=== PATIENT | female | born 1975 | race Two or more races ===

== ENCOUNTER 2023-05-26 19:32 | Inpatient (IN) | payer MEDICAID, SELFPAY ==
--- NOTE | ~2023-05-26 | CT_ITS ---
EXAMINATION: CT ABDOMEN AND PELVIS WITH CONTRAST CLINICAL INFORMATION: Right lower quadrant abdominal pain COMPARISON: None available. TECHNIQUE: Multidetector volumetric images were obtained from the superior aspect of the liver through the pubic symphysis following administration 85 mL of Omnipaque 350 intravenous contrast. Sagittal and coronal reformatted images were obtained on the technologist's workstation. Oral contrast: No This CT examination was performed using dose optimization techniques as appropriate, variously including the following: *Automated exposure control *Adjustment of mA and/or kV according to patient size (this includes techniques or standardized protocols for targeted exams where dose is matched to indication/reason for exam; i.e. extremities or head) *Use of iterative reconstruction technique DLP: 334 mGy-cm FINDINGS: LUNG BASES: The visualized lung bases are unremarkable. LIVER, GALLBLADDER, AND BILIARY TREE: Exophytic liver contour nodularity is noted at the hepatic dome posteriorly measuring measuring 2.2 cm in transverse dimension and 1.6 cm in AP dimension. (4 image 90, series 7 image 45). The liver is otherwise unremarkable. No intrahepatic biliary ductal dilatation. The common bile duct is mildly prominent in size measuring 0.9 cm. Common bile duct is dilated up to the ampulla. No intraductal radiopaque filling defects are noted. The gallbladder is unremarkable with no evidence of radiopaque gallstones, gallbladder wall thickening, or obvious pericholecystic inflammatory changes. PANCREAS: Unremarkable. SPLEEN: Unremarkable. ADRENAL GLANDS: Unremarkable. KIDNEYS AND URETERS: A 0.8 x 0.5 x 0.6 cm calculus is noted in the right mid ureter approximately 3 cm distal to the ureteropelvic junction. There is proximal moderate hydroureteronephrosis with mild right perinephric stranding. Significant kinking is noted in the proximal right ureter as best seen on the coronal reformatted images (series 7 image 29). Mild enhancement of the wall of the right renal pelvis and right ureter proximal to the level of the calculus is noted. The left kidney is There is somewhat patchy heterogeneous enhancement of the right renal parenchyma. A 1.2 cm low-attenuation is noted in the lateral cortex of the lower pole of the right kidney which does not represent a cyst by CT Hounsfield units criteria. No evidence of left hydroureter nephrosis of left perinephric stranding. No additional radiopaque calculi are noted in the kidneys and ureters. BLADDER: The bladder is largely decompressed and therefore not optimally evaluated. No evidence of radiopaque calculi in the bladder. Even though the latter is collapsed the bladder wall thickening appears to be somewhat greater than expected for a collapsed bladder. There is enhancement of the bladder mucosa. GASTROINTESTINAL TRACT: The stomach is decompressed and therefore not optimally evaluated. No abnormal small bowel dilatation. An appendix is normal. The colon is normal in caliber. No evidence of colonic wall thickening or pericolonic fat stranding. Peritoneal cavity: No evidence of free intraperitoneal air or fluid. ABDOMINAL WALL: No significant hernia is appreciated. LYMPH NODES: No evidence of pathologically enlarged lymph nodes VASCULAR: The aortoiliac vessels are normal in caliber. Incidental note is made of an accessory left renal artery supplying the lower pole. Minimal calcific atherosclerosis of the aortoiliac vessels. PELVIC VISCERA: Unremarkable CT appearance of the uterus, ovaries and adnexa. OSSEOUS STRUCTURES: No acute or suspicious osseous abnormalities. Probable osteopenia. CT/CT abdomen pelvis w IV con IMPRESSION: 1. Normal appendix. 2. A 0.8 x 0.5 x 0.6 cm calculus in the right mid ureter approximately 3 cm distal to the ureteropelvic junction resulting in moderate proximal hydroureteronephrosis. Mild enhancement of the wall of the right renal pelvis and right ureter proximal to the level of the calculus is noted. Mild right perinephric stranding is noted. There is somewhat patchy heterogeneous enhancement of the right renal parenchyma which may represent delayed nephrogram however possibility of renal parenchymal infections process cannot be completely excluded. No evidence of right renal parenchymal abscess or perinephric abscess at this time. 3. A 1.2 cm low-attenuation lesion in the lateral cortex of the lower pole of the right kidney does not represent a cyst by CT Hounsfield units criteria. Recommend focused ultrasound correlation. 4. The bladder is largely decompressed and therefore not optimally evaluated. Even though the bladder is collapsed, the wall thickening appears to be somewhat greater than expected for a collapsed bladder and there is enhancement of the bladder mucosa, recommend clinical correlation and correlation with urinalysis. 5. Exophytic somewhat isodense liver contour nodularity at the hepatic dome posteriorly measuring 2.2 cm in transverse dimension and 1.6 cm in AP dimension. Underlying lesion is difficult to exclude. Recommend further evaluation with dynamic liver MRI. 6. Probable osteopenia. Fleischner guidelines were followed.
--- NOTE | ~2023-05-26 | FL_ITS ---
EXAMINATION: XR FLUOROSCOPY WITH IMAGES CLINICAL INFORMATION: Right ureteral stent placement. COMPARISON: None available. TECHNIQUE: Fluoroscopy Supervised By: Dr. Patrice Hobbs. Fluoroscopy Time: 14.2. Cumulative Dose: 2.52 mGy. Images: 3. FINDINGS: Multiple images demonstrate a cystoscope in place. Contrast is injected. There is an area of mucosal irregularity in the proximal right ureter with associated pelvocaliectasis. Please see Dr. Patrice Hobbs's report for full details. Ureteral stent is not noted on any of the imaging. FL/FL guidance in OR IMPRESSION: Fluoroscopy and spot films provided during cystoscopy and ureteroscopy.
--- NOTE | ~2023-05-26 | IR_ITS ---
EXAMINATION: FLUOROSCOPY NEPHROSTOGRAM CLINICAL INFORMATION: Obstructive uropathy. Status post attempted ureteral stent placement COMPARISON: CT abdomen and pelvis 05/27/2023 TECHNIQUE/FINDINGS: Informed consent was obtained following a discussion of the risks and benefits of the procedure with the patient as well as with the patient's mother via telephone since the patient recently received sedation. Patient was placed prone on the fluoroscopy table. Preliminary ultrasound demonstrates severe right hydronephrosis in concordance with recent cross-sectional imaging. A site on the right flank was selected, marked and sterilely prepped and draped. 1% lidocaine was administered for local anesthesia. A posterior lower pole calyx was accessed with a 21-gauge AccuStick needle under direct ultrasound guidance. The needle was exchanged for a transitional dilator over a 0.018 guidewire. Nephrostogram demonstrates severe hydronephrosis with obstructing stone in the proximal and mid-ureter. A 4 Jamaican glide catheter was negotiated past the stone to the bladder with the assistance of a 0.035 standard Glidewire. Measurements were obtained. Unfortunately, the appropriate length nephroureteral stent was not readily available. As such, we elected to place an 8.5 Jamaican nephrostomy tube. Contrast injection demonstrates satisfactory position of the tube with pigtail formed within the renal pelvis. The external portion of the catheter was secured with suture and the tube was maintained to gravity bag drainage. Patient tolerated the procedure without immediate consultation. FLUOROSCOPY TIME: DOSE AREA PRODUCT: uGy-m2 (microgray-meter squared) IR/IR nephrostomy IMPRESSION: Placement of 8.5 Jamaican right nephrostomy tube Plan: Flush tube with 10 mL saline twice daily. Some amount of blood within the urine output in the diagnostic is expected and should decrease over the next 48-72 hours. If this tube is necessary for a long period of time, routine exchange at 12 weeks is recommended. Follow up with urology
[2023-05-26 19:39] VITALS: BP 120/82; PULSE 100; O2SAT 99
[2023-05-26 21:39] VITALS: BP 118/67; PULSE 101; RESP 20; TEMP 37.6; O2SAT 97; BMI 22.2
[2023-05-26 22:30] LABS: Hematocrit 35.8 % (37.0-47.0); Hemoglobin 11.7 g/dl (12.0-16.0); Mean Corpuscular HGB Conc 32.7 g/dl (31.0-35.0); Mean Corpuscular Hemoglobin 26.2 pg (27.0-33.0); Mean Corpuscular Volume 80.3 fL (80.0-98.0); Mean Platelet Volume 11.9 fL (9.4-12.3); Platelet Count 206 X10*3/uL (160-400); Red Blood Count 4.46 X10*6/uL (4.20-5.50); Red Cell Distribution Width 12.7 % (11.0-16.0); White Blood Count 16.8 X10*3/uL (4.8-10.8)
[2023-05-26 22:32] LABS: Appearance Urine Turbid; Color Urine Yellow; Glucose Urine UA Negative (Negative); Leukocyte Esterase Urine Moderate (2+) (Negative); Nitrite Urine Negative (Negative); PH >= 9.0 (5.0-9.0); UMIC TRIGGER UACC YES; Urine Blood Trace (Negative); Urine Ketones Negative (Negative); Urine Protein 100 (2+) mg/dL (Neg-Trace)
[2023-05-26 22:43] LABS: COVID-19 Test Negative (Negative); IDNOW Serial# 08D9AD1C
[2023-05-26 22:44] LABS: IDNOW Serial# 152EDE1D; Influenza A Negative (Negative); Influenza B2 Negative (Negative)
[2023-05-26 22:47] LABS: Bacteria Urine 4+ (None Seen); UACC Culture Trigger YES; WBC Urine >50 /HPF (0-5)
[2023-05-26 22:52] LABS: Alanine Aminotransferase 21 U/L (0-31); Albumin Level 4.2 g/dL (3.5-5.0); Alkaline Phosphatase 99 U/L (39-117); Anion Gap 14 (12-20); Aspartate Amino Transferase 24 U/L (5-31); Bilirubin Total 0.7 mg/dL (0.0-1.0); Blood Urea Nitrogen 16 mg/dL (9-16); Calcium 9.6 mg/dL (8.4-10.2); Carbon Dioxide 23 mmol/L (22-29); Chloride 104 mmol/L (96-108); Creatinine Clr Calc Pharmacy 55.2; Estimated Glomerular Filt Rate > 60; Glucose Random 143 mg/dL (60-115); HCG Quantitative 9 mIU/mL; Potassium 3.4 mmol/L (3.3-5.1); Sodium 138 mmol/L (135-145); Total Protein 8.8 g/dL (6.5-8.0)
[2023-05-27] VITALS (26 sets, daily range): BP systolic 76–160; BP diastolic 30–66; PULSE 63–107; RESP 13–18; TEMP 36.2–38.6; O2SAT 94–100; BMI 22.2
--- NOTE | 2023-05-27 03:08 | ED_ITS ---
[facility] - General Adult General Chief complaint: General Medical Stated complaint: n/v, weakness since this morning Time Seen by Provider: 05/27/23 02:38 Source: patient Mode of arrival: ambulatory History of Present Illness HPI narrative: 47-year-old female who presents with nausea and vomiting as well as lower abdominal pain and urinary symptoms since this morning. Patient reports that son had influenza 2 weeks ago and last LMP was over 3 years ago. Related Data Allergies Allergy/AdvReac Type Severity Reaction Status Date / Time No Known Allergies Allergy Verified 05/26/23 21:47 Review of Systems 2 Review of Systems: Pertinent positives and negatives as stated in the [facility] Past Medical History Source: nursing notes reviewed Social History Social History Smoked in Last 30 Days: No Use of substances other than those prescribed or required for medical reasons: No Advance Directives: No Advance Directives Information Provided: No Patient : No Physical Exam ED Vital Signs: Vital Signs - 24 hr 05/26/23 21:39 05/27/23 01:56 05/27/23 05:04 Temperature 99.6 F 99.1 F 100.1 F Pulse Rate 101 H 105 H 99 Respiratory Rate 20 17 16 Blood Pressure 118/67 105/58 L 89/48 L Pulse Oximetry 97 98 98 Oxygen Delivery Method Room Air Room Air Room Air 05/27/23 06:38 Temperature 99 F Pulse Rate 66 Respiratory Rate 14 Blood Pressure 110/61 Pulse Oximetry 94 Oxygen Delivery Method Room Air BMI result Body Mass Index 22.2 VITAL SIGNS: Reviewed. GENERAL: Well developed, well nourished, in no acute distress. HEAD: Normocephalic/atraumatic EYES: PERRLA, EOMI EARS: Ext canals without abnormality NOSE: Nares patent bilateral OROPHARYNX: no oral lesions noted, posterior pharynx clear NECK: Supple, no adenopathy LUNGS: Normal breath sounds. No adventitious sounds or accessory muscle use. SpO2<98> CARDIOVASCULAR: Regular rate and rhythm without noted murmurs ABDOMEN: Soft, non-tender, non-distended with bowel sounds. MUSCULOSKELETAL: No tenderness, deformities, or effusions noted on gross inspection. EXTREMITIES: No cyanosis, clubbing or edema. SKIN: Inspection of the skin reveals no rashes NEUROLOGIC: Alert and oriented x 4. Strength and sensation to light touch were grossly intact x 4. Medications Administered Discontinued Medications Generic Name Dose Route Start Last Admin Trade Name Alyssa PRN Reason Stop Dose Admin Sodium Chloride 1,000 mls @ 999 mls/hr 05/27/23 03:15 05/27/23 04:30 Ns IV 05/27/23 04:15 Infused .Q1H1M ASHLEY Infusion Ceftriaxone Sodium 1 gm/ 50 mls @ 100 mls/hr 05/27/23 03:08 05/27/23 04:00 Sodium Chloride IV 05/27/23 03:37 Infused ONCE ONE Infusion Sodium Chloride 1,000 mls @ 999 mls/hr 05/27/23 06:00 05/27/23 06:20 Ns IV 05/27/23 07:00 999 mls/hr .Q1H1M ASHLEY Administration Iohexol 100 ml 05/27/23 06:29 05/27/23 06:30 Iohexol 350 Mg/Ml 100 Ml Infus..Btl IV 05/27/23 06:30 100 ml ONCE ONE Administration Ketorolac Tromethamine 15 mg 05/27/23 03:13 05/27/23 03:26 Ketorolac Tromethamine 30 Mg/Ml Vial IVPUSH 05/27/23 03:14 15 mg ONCE ONE Administration Medical Decision Making Medical Decision Making MDM Narrative: 47-year-old female with history and clinical presentation, DDX: Viral illness, UTI, pyelonephritis, low clinical suspicion for acute appendicitis I reviewed all investigations and hematologic indices significant for leukocytosis and normocytic anemia without thrombocytopenia. Chemistry indices do not demonstrate an OPAL or electrolyte/liver enzyme derangements. Urinalysis demonstrates significant RBCs and bacteria as well as leukocyte esterase increasing the thoughts that this is a pyelonephritis. Patient received IV fluids/antibiotics, antiemetics as well as analgesics. Viral testing is negative for COVID-19/influenza. 0600: I acknowledged that patient's beta hCG is 9, I do think that this is a variability in the patient/lab results, I discussed with the patient at length at bedside and she adamantly denies any sexual relations of any kind and states that there is no possibility that she is . On re-evaluation patient is feeling improved, but states that now she is having significant discomfort in her back. 0653: My preliminary review of the CT scan demonstrates severe right-sided hydronephrosis with a corresponding proximal stone. 0706: I discussed case with Dr. Hobbs who states that he will take a look. I signed out to Dr. 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 Please see the discussion above 05/26/23 22:04 05/26/23 22:04 Labs: Lab Results 05/26/23 05/26/23 Range/Units 22:04 22:16 WBC 16.8 H (4.8-10.8) X10*3/uL RBC 4.46 (4.20-5.50) X10*6/uL Hgb 11.7 L (12.0-16.0) g/dl Hct 35.8 L (37.0-47.0) % MCV 80.3 (80.0-98.0) fL MCH 26.2 L (27.0-33.0) pg MCHC 32.7 (31.0-35.0) g/dl RDW 12.7 (11.0-16.0) % Plt Count 206 (160-400) X10*3/uL MPV 11.9 (9.4-12.3) fL Absolute Nucleated RBC 0.000 (0.0-0.012) X10*3/uL Nucleated RBC % (auto) 0.0 (0.0-0.2) /100WBC Sodium 138 (135-145) mmol/L Potassium 3.4 (3.3-5.1) mmol/L Chloride 104 (96-108) mmol/L Carbon Dioxide 23 (22-29) mmol/L Anion Gap 14 (12-20) BUN 16 (9-16) mg/dL Creatinine 0.85 (0.5-1.4) mg/dL Estim Creat Clear Calc 55.2 Estimated GFR > 60 Random Glucose 143 H (60-115) mg/dL Calcium 9.6 (8.4-10.2) mg/dL Total Bilirubin 0.7 (0.0-1.0) mg/dL AST 24 (5-31) U/L ALT 21 (0-31) U/L Alkaline Phosphatase 99 (39-117) U/L Total Protein 8.8 H (6.5-8.0) g/dL Albumin 4.2 (3.5-5.0) g/dL Beta HCG, Quant 9 mIU/mL Urine Color Yellow Urine Appearance Turbid Urine pH >= 9.0 (5.0-9.0) Ur Specific [place] 1.020 (1.005-1.025) Urine Protein 100 (2+) H (Neg-Trace) mg/dL Urine Glucose (UA) Negative (Negative) mg/dL Urine Ketones Negative (Negative) mg/dL Urine Blood Trace H (Negative) Urine Nitrite Negative (Negative) Ur Leukocyte Esterase Moderate (2+) H (Negative) Urine RBC 6-10 H (0-2) /HPF Urine WBC >50 H (0-5) /HPF Ur Squamous Epith Cells 3-5 (0-2) /HPF Urine Bacteria 4+ (None Seen) Hyaline Casts 3-5 (0-2) /LPF COVID-19 (JUDY) Negative (Negative) COVID-19 Clin Com See Note Influenza Type A (NAYANA) Negative (Negative) Influenza Type B (NAYANA) Negative (Negative) Influenza A & B Note See Note Radiology Impression Discussion of test interpretation with radiology: I have reviewed the radiologist's reading. Radiologist Impression: Please see the discussion above Discharge Plan Discharge Clinical Impression: Hydronephrosis, Ureterolithiasis Patient Disposition: Still a Patient
[2023-05-27] MEDS: Ketorolac Tromethamine 30 MG/ML VIAL 15 MG IVPUSH (03:26)
[2023-05-27] MEDS: 0.9 % Sodium Chloride 1,000 ML 999 ML IV ×2 (03:28→06:20)
[2023-05-27] MEDS: cefTRIAXone sodium 1 GM in 0.9 % Sodium Chloride 50 ML IV ×2 (03:28→17:52)
[2023-05-27] MEDS: iohexoL 350 MG/ML 100 ML INFUS..BTL IV (06:30)
--- NOTE | 2023-05-27 07:30 | PC.NURSE ---
pt is alert and oriented, skin appropriate for ethnicity but warm to touch, respirations even and unlabored, pt denies abd pain at this time, abd pain only when urinating but does report a headache 7/10 and nausea.
[2023-05-27] MEDS: ondansetron HCL 4 MG/2 ML VIAL IVPUSH (07:57)
[2023-05-27] MEDS: Lactated Ringers 1,000 ML 150 ML IVCONT ×2 (07:57→17:27)
[2023-05-27] MEDS: Morphine Sulfate 4 MG/ML CARTRIDGE IVPUSH (07:57)
--- NOTE | 2023-05-27 08:32 | PM.UROCN ---
History of Present Illness Consult details Consult date: 05/27/23 Narrative: CC: Proximal right ureteric stone with obstruction 47-year-old female. Presents with 1 day history of right flank pain, fever, chills. Has had flank pain on and off for past 2-3 weeks Associated with nausea and vomiting No known stone history No family history stones reported WBC 16.8, creatinine 0.85 Has received ceftriaxone single dose Temperature up to 101.4 with pulse 104, BP 118/66 Imaging - CT A 0.8 x 0.5 x 0.6 cm calculus is noted in the right mid ureter approximately 3 cm distal to the ureteropelvic junction. There is proximal moderate hydroureteronephrosis with mild right perinephric stranding. Plan for cystoscopy, right retrograde, stent placement Review of Systems Constitutional: Constitutional: Reports as per HPI and Reports no additional constitutional complaints Cardiovascular: Cardiovascular: Reports as per HPI and Reports no additional cardiovascular complaints Respiratory: Respiratory: Reports as per HPI and Reports no additional respiratory complaints Gastrointestinal: Gastrointestinal: Reports as per HPI and Reports no additional gastrointestinal complaints Genitourinary: Genitourinary: Reports as per HPI Musculoskeletal: Musculoskeletal: Reports no additional musculoskeletal complaints and Reports as per HPI Neurologic: Reports system reviewed and no additional complaints, except as documented and Reports as per HPI [facility] Social History Social History Smoked in Last 30 Days: No Use of substances other than those prescribed or required for medical reasons: No Advance Directives: No Advance Directives Information Provided: No Patient : No Meds Allergies Allergy/AdvReac Type Severity Reaction Status Date / Time No Known Allergies Allergy Verified 05/26/23 21:47 Active Medications: Current Medications Lactated Ringer's (Lr) 1,000 mls @ 150 mls/hr IVCONT .Q6H40M [facility] Last Admin: 05/27/23 07:57 Dose: 150 mls/hr Physical Exam Vital Signs: Vital Signs: Last Vital Signs Temp 101.4 F H 05/27/23 07:55 Pulse 104 H 05/27/23 07:55 Resp 18 05/27/23 07:55 BP 118/66 05/27/23 07:55 Pulse Ox 96 05/27/23 07:55 O2 Del Method Room Air 05/27/23 07:55 BMI result Body Mass Index 22.2 Const: General: cooperative, healthy appearing, comfortable and no acute distress Orientation/consciousness: patient oriented x3 HEENT: Face and sinus: Yes normal facial exam Mouth: moist mucous membranes Neck: Neck: Yes normal visual inspection, Yes full ROM and Yes trachea midline Chest: Chest palpation & inspection: normal inspection of the chest Resp: Effort & Inspection: normal respiratory effort, able to speak in complete sentences and no respiratory distress GI: Inspection: Yes normal to inspection Back/Spine/Pelvis: Cervical Spine: normal cervical lordosis Thoracic/Lumbar Spine: thoracic and lumbar spine normal to inspection Skin: General skin exam: no rashes or lesions noted Neuro: General: patient oriented x3, tone normal and moves all extremities Extrem: General: Yes normal to inspection and Yes capillary refill normal Results Labs 05/26/23 22:04 05/26/23 22:04 Labs: Abnormal lab results 05/26/23 05/26/23 Range/Units 22:04 22:16 WBC 16.8 H (4.8-10.8) X10*3/uL Hgb 11.7 L (12.0-16.0) g/dl Hct 35.8 L (37.0-47.0) % MCH 26.2 L (27.0-33.0) pg Random Glucose 143 H (60-115) mg/dL Total Protein 8.8 H (6.5-8.0) g/dL Urine Protein 100 (2+) H (Neg-Trace) mg/dL Urine Blood Trace H (Negative) Ur Leukocyte Esterase Moderate (2+) H (Negative) Urine RBC 6-10 H (0-2) /HPF Urine WBC >50 H (0-5) /HPF Short CBC 05/26/23 Range/Units 22:04 WBC 16.8 H (4.8-10.8) X10*3/uL Hgb 11.7 L (12.0-16.0) g/dl Hct 35.8 L (37.0-47.0) % Plt Count 206 (160-400) X10*3/uL BMP 05/26/23 22:04 Sodium 138 Potassium 3.4 Chloride 104 Carbon Dioxide 23 BUN 16 Creatinine 0.85 Calcium 9.6 Liver Function 05/26/23 Range/Units 22:04 Total Bilirubin 0.7 (0.0-1.0) mg/dL AST 24 (5-31) U/L ALT 21 (0-31) U/L Alkaline Phosphatase 99 (39-117) U/L Albumin 4.2 (3.5-5.0) g/dL Urine 05/26/23 Range/Units 22:16 Urine Color Yellow Urine Appearance Turbid Urine pH >= 9.0 (5.0-9.0) Ur Specific [place] 1.020 (1.005-1.025) Urine Protein 100 (2+) H (Neg-Trace) mg/dL Urine Glucose (UA) Negative (Negative) mg/dL All other labs normal. Assessment and Plan (1) Ureterolithiasis: Status: Acute (2) Hydronephrosis: Status: Acute Plan Risks, benefits and alternatives to therapy were discussed. These include but are not limited to infection, bleeding, damage to local organs and tissues, need for further interventions. Anesthetic risks regarding cardiac arrhythmia, blood clots, and potential mortality were discussed. The patient understands the typical recovery time and the outpatient nature of the procedure. After consideration of these risks the patient gives full informed consent and they wish to move ahead with the procedure. Cystoscopy, right retrograde, right stent placed Procedures Date of Service Date of Service: 05/27/23
[2023-05-27] MEDS: Acetaminophen Supp 650 MG SUPP.RECT PR (08:38)
--- NOTE | 2023-05-27 09:22 | HO.ANESPROP2 ---
[facility] Active Problems Active Problems: All Active Problems (Updated 05/27/23 @ 07:15 by Lucy Wren MD) Ureterolithiasis (Acute) Hydronephrosis (Acute) Past Medical History Functional capacity: independent ambulation Patient : No Family History Family history of problems with anesthesia: No Surgical History History of Problems with Anesthesia: No Meds Allergies Allergy/AdvReac Type Severity Reaction Status Date / Time No Known Allergies Allergy Verified 05/26/23 21:47 Active Medications: Current Medications Lactated Ringer's (Lr) 1,000 mls @ 150 mls/hr IVCONT .Q6H40M ASHLEY Last Admin: 05/27/23 07:57 Dose: 150 mls/hr Exam Height,Weight and Vital Signs: Height 4 ft 11 in Weight 49.895 kg Last Vital Signs Temp 101.4 F H 05/27/23 07:55 Pulse 104 H 05/27/23 07:55 Resp 18 05/27/23 07:55 BP 118/66 05/27/23 07:55 Pulse Ox 96 05/27/23 07:55 O2 Del Method Room Air 05/27/23 07:55 Pertinent Lab Results Pertinent Lab Results: Laboratory Tests 05/26/23 05/26/23 22:04 22:16 WBC 16.8 H RBC 4.46 Hgb 11.7 L Hct 35.8 L MCV 80.3 MCH 26.2 L MCHC 32.7 RDW 12.7 Plt Count 206 MPV 11.9 Absolute Nucleated RBC 0.000 Nucleated RBC % (auto) 0.0 Sodium 138 Potassium 3.4 Chloride 104 Carbon Dioxide 23 Anion Gap 14 BUN 16 Creatinine 0.85 Estim Creat Clear Calc 55.2 Estimated GFR > 60 Random Glucose 143 H Calcium 9.6 Total Bilirubin 0.7 AST 24 ALT 21 Alkaline Phosphatase 99 Total Protein 8.8 H Albumin 4.2 Beta HCG, Quant 9 Urine Color Yellow Urine Appearance Turbid Urine pH >= 9.0 Ur Specific [place] 1.020 Urine Protein 100 (2+) H Urine Glucose (UA) Negative Urine Ketones Negative Urine Blood Trace H Urine Nitrite Negative Ur Leukocyte Esterase Moderate (2+) H Urine RBC 6-10 H Urine WBC >50 H Ur Squamous Epith Cells 3-5 Urine Bacteria 4+ Hyaline Casts 3-5 COVID-19 (JUDY) Negative COVID-19 Clin Com See Note Influenza Type A (NAYANA) Negative Influenza Type B (NAYANA) Negative Influenza A & B Note See Note Airway Mallampati Class: II TM Dist: >3cm Neck ROM: Full Heart: RRR Lungs: CTA Assessment and Plan Assessment Anesthesia Assessment: Anesthesia Plan Discussed Final Anesthetic Review Family History of Problems with Anesthesia: No History of Problems with Anesthesia: No NPO: Yes ASA Class: II Final Preanesthetic Review: Meds/Allgs Chart Reviewed, Consent Obtained/Reviewed and Anes Risks/Benef Reviewed Patient Risk: Low Procedure Risk: Low Anesthetic Plan Anesthetic Plan: GA Disposition: Standard PACU
--- NOTE | 2023-05-27 09:22 | PC.NURSE ---
report given to Sudhakar at [facility], scheduled for picking machine operator at 1130 pt is currently ambulating to the bathroom, will draw the cultures when returned
[2023-05-27 09:44] LABS: Lactic Acid 1.3 mmol/L (0.5-2.0)
[2023-05-27] MEDS: Acetaminophen 1,000 MG/100 ML PIGGYBACK 400 MG IV (09:44)
[2023-05-27 09:56] LABS: HCG Quantitative 10 mIU/mL
--- NOTE | 2023-05-27 10:09 | PHA.MEDREC ---
Pharmacy Consult ? Medication Reconciliation Pharmacy has completed the medication reconciliation.
--- NOTE | 2023-05-27 10:33 | PC.NURSE ---
md aware of the bp tapering down, the lr that has been running at 150ml/hr are wide open at this time
--- NOTE | 2023-05-27 11:15 | PC.NURSE ---
assumed care of pt at 1045, pt a&ox4, hypotensive, afebrile, other vss, reporting 7/10 h/a and abd pain w urination. LR running at 999ml/hr per MD verbal order. pending admission orders. no new orders at this time.
[2023-05-27] MEDS: Lactated Ringers 1,000 ML 999 ML IVCONT (11:54)
--- NOTE | 2023-05-27 12:38 | MHC.SHP ---
Pre-Procedural Eval Section A - 24 Hr Update-Section A only Date of Service: 05/27/23 The patient is an INPATIENT: No Changes since office visit: No Cold of Flu in the past 2 weeks, No New Medical Problems, No Changes in Medication and No Patient answered all questions The patient has been examined within 24 hours of the surgical procedure. The History & Physical has been completed within 30 days and I have reviewed it.: Yes Section B - Complete if H&P > 30 days Chief Complaint: n/v, weakness since this morning Allergies: Allergies Allergy/AdvReac Type Severity Reaction Status Date / Time No Known Allergies Allergy Verified 05/27/23 12:14 Plan Diagnosis/Plan: Unchanged (cysto, right retrograde, stent placement) I have reviewed the history and physical and performed a pertinent physical examination on my patient. No changes have occurred unless specified. Time Spent With Patient Time: Total time managing care of this patient today ____ minutes.
--- NOTE | 2023-05-27 12:42 | PC.NURSE ---
Dr. Villar notified of BP 94/51. Per verbal order to receive 1L LR. 1L wide open at time of transport to OR. OR nurse notified of order and that pt received approx 400ML prior to leaving pre-op area.
--- NOTE | 2023-05-27 13:00 | P.CONAN_ITS ---
[facility] Active Problems Active Problems: All Active Problems (Updated 05/27/23 @ 09:52 by Rl Hollingsworth MD) UTI (urinary tract infection) (Acute) Fever (Acute) Ureterolithiasis (Acute) Hydronephrosis (Acute) Past Medical History Functional capacity: independent ambulation Family History Family history of problems with anesthesia: No Surgical History Surgical History History of History of Problems with Anesthesia: No Social History Social History Patient Tobacco Use Status: Never used Tobacco Smoked in Last 30 Days: No Use of substances other than those prescribed or required for medical reasons: No Are you DNR?: No Advance Directives: No Advance Directives Information Provided: No Patient : No Meds Allergies Allergy/AdvReac Type Severity Reaction Status Date / Time No Known Allergies Allergy Verified 05/27/23 12:14 Active Medications: Current Medications Fentanyl (Fentanyl Citrate/Pf 100 Mcg/2 Ml Vial) 25 mcg IVPUSH Q5M PRN; Protocol PRN Reason: Pain, Moderate(Pain Scale 4-6) Stop: 05/27/23 15:27 Lactated Ringer's (Lr) 1,000 mls @ 150 mls/hr IVCONT .Q6H40M [facility] Last Infusion: 05/27/23 11:26 Dose: Infused Lactated Ringer's (Lr) 1,000 mls @ 0 mls/hr IVCONT .Q0M [facility] Last Admin: 05/27/23 11:54 Dose: 999 mls/hr Ondansetron HCl (Ondansetron Hcl 4 Mg/2 Ml Vial) 4 mg IVPUSH ONCE PRN PRN Reason: Nausea and Vomiting Stop: 05/27/23 15:29 Home Medications Medication Instructions Recorded Confirmed Last Taken Type acetaminophen 325 mg tablet 325 mg PO QID PRN Pain 05/27/23 05/27/23 Unknown History (Tylenol) Exam Height,Weight and Vital Signs: Height 4 ft 11 in Weight 49.895 kg Last Vital Signs Temp 97.7 F 05/27/23 12:13 Pulse 80 05/27/23 12:13 Resp 16 05/27/23 12:13 BP 94/51 L 05/27/23 12:13 Pulse Ox 97 05/27/23 12:13 O2 Del Method Room Air 05/27/23 12:13 Pertinent Lab Results Pertinent Lab Results: Laboratory Tests 05/26/23 05/26/23 05/27/23 22:04 22:16 09:29 WBC 16.8 H RBC 4.46 Hgb 11.7 L Hct 35.8 L MCV 80.3 MCH 26.2 L MCHC 32.7 RDW 12.7 Plt Count 206 MPV 11.9 Absolute Nucleated RBC 0.000 Nucleated RBC % (auto) 0.0 Sodium 138 Potassium 3.4 Chloride 104 Carbon Dioxide 23 Anion Gap 14 BUN 16 Creatinine 0.85 Estim Creat Clear Calc 55.2 Estimated GFR > 60 Random Glucose 143 H Lactic Acid 1.3 Calcium 9.6 Total Bilirubin 0.7 AST 24 ALT 21 Alkaline Phosphatase 99 Total Protein 8.8 H Albumin 4.2 Beta HCG, Quant 9 10 Urine Color Yellow Urine Appearance Turbid Urine pH >= 9.0 Ur Specific Chicken 1.020 Urine Protein 100 (2+) H Urine Glucose (UA) Negative Urine Ketones Negative Urine Blood Trace H Urine Nitrite Negative Ur Leukocyte Esterase Moderate (2+) H Urine RBC 6-10 H Urine WBC >50 H Ur Squamous Epith Cells 3-5 Urine Bacteria 4+ Hyaline Casts 3-5 COVID-19 (JUDY) Negative COVID-19 Clin Com See Note Influenza Type A (NAYANA) Negative Influenza Type B (NAYANA) Negative Influenza A & B Note See Note Airway Mallampati Class: II TM Dist: >3cm Neck ROM: Full Heart: RRR Lungs: CTA Assessment and Plan Assessment Anesthesia Assessment: Anesthesia Plan Discussed Final Anesthetic Review Family History of Problems with Anesthesia: No History of Problems with Anesthesia: No NPO: Yes ASA Class: II and Emergency Final Preanesthetic Review: Meds/Allgs Chart Reviewed and Consent Obtained/Reviewed Patient Risk: Intermediate Procedure Risk: Low Anesthetic Plan Anesthetic Plan: GA Disposition: Standard PACU
--- NOTE | 2023-05-27 14:02 | W.PM.OPN ---
Operative Note Operative Note Date of Service: 05/27/23 Narrative: PreOperative Diagnosis: Obstructing right proximal stone with hydronephrosis and elevated white count Post Operative Diagnosis: Obstructing right proximal stone with hydronephrosis and elevated white count Procedure: Cystoscopy with right retrograde and attempted stent Surgeon: Dr Patrice Hobbs Anesthesia: Sedation Indications for procedure: Presentation through emergency room with elevated white count, proximal obstructing stone Procedure: After informed consent was verified the patient was brought to the operating room and placed in a supine position. Anesthesia was administered per protocol. The patient was placed in modified dorsal lithotomy position and prepped and draped in a sterile fashion. A safety pause time-out was performed. Laterality of procedure and antibiotics were confirmed, appropriate imaging was available A 22 Beninese cystoscope was introduced per urethra. No abnormality was noted of urethra or bladder. Both ureteric orifices were seen in a normal position. Right ureteric orifice appeared inflamed The right ureter was cannulated with an open ended catheter which was difficult and a retrograde examination was performed. J hooking of right ureter with proximal obstruction and right hydroureteronephrosis . Attempt was made to pass a guidewire. Both a straight sensor guidewire and an angled Glidewire was attempted. A deflection bridge on the cystoscope was attempted. An attempt was made to use ureteroscopy in order to gain access to the ureter. All attempts at access to the ureter for a wire to go proximally were unsuccessful. Decision made to proceed with right PCN Given infected stone Pathology: [] Drains: []
[2023-05-27] MEDS: 0.9 % Sodium Chloride 500 ML 125 ML IV (17:53)
[2023-05-28] MEDS: 0.9 % Sodium Chloride 500 ML 125 ML IV ×2 (00:24→04:25)
[2023-05-28 04:00] VITALS: BP 115/60; PULSE 61; RESP 18; TEMP 36.4; O2SAT 98
[2023-05-28] MEDS: cefTRIAXone sodium 1 GM in 0.9 % Sodium Chloride 50 ML IV ×2 (05:05→17:02)
[2023-05-28 07:05] VITALS: BP 100/57; PULSE 77; RESP 16; TEMP 36.6; O2SAT 98
[2023-05-28 07:16] LABS: Basophils Percent Auto 0.2 % (0-2); Hemoglobin 9.8 g/dl (12.0-16.0); Imm Gran Abs Auto 0.08 X10*3/uL (0.00-0.03); Imm Gran Pct Auto 0.5 % (0.0-0.4); Lymphocytes Absolute Auto 1.1 X10*3/uL (1.2-4.9); Lymphocytes Percent Auto 6.4 % (20-40); MANUAL DIFF FLAG SCAN; Mean Corpuscular HGB Conc 32.7 g/dl (31.0-35.0); Mean Corpuscular Hemoglobin 26.6 pg (27.0-33.0); Mean Corpuscular Volume 81.3 fL (80.0-98.0); Mean Platelet Volume 12.5 fL (9.4-12.3); Monocytes Absolute Auto 0.3 X10*3/uL (0.1-1.2); Monocytes Percent Auto 1.8 % (2-11); Neutrophils Percent Auto 91.1 % (45-73); Platelet Count 160 X10*3/uL (160-400); Red Blood Count 3.69 X10*6/uL (4.20-5.50); Red Cell Distribution Width 13.1 % (11.0-16.0); SCAN SMEAR FLAG 1; White Blood Count 17.6 X10*3/uL (4.8-10.8)
[2023-05-28 07:28] LABS: Blood Urea Nitrogen 17 mg/dL (9-16); Creatinine Clr Calc Pharmacy 59.3; Estimated Glomerular Filt Rate > 60; Glucose Random 125 mg/dL (60-115)
[2023-05-28 07:43] LABS: Anion Gap 11 (12-20); Calcium 8.5 mg/dL (8.4-10.2); Carbon Dioxide 21 mmol/L (22-29); Chloride 112 mmol/L (96-108); Potassium 3.9 mmol/L (3.3-5.1); Sodium 140 mmol/L (135-145)
[2023-05-28 07:52] LABS: SLIDE REVIEW VERIFIED
--- NOTE | 2023-05-28 09:10 | MHC.CM.PN ---
Addendum entered by Alejandra Esquivel RN 05/28/23 09:33: PER IV, NO ACTIVE INSURANCE. REFERRAL SENT TO [employer] FOR ASSISTANCE W/ [facility]. Original Note: PATIENT IS FROM HOME W/ FAMILY - MOTHER, CHILDREN, BROTHER. FUNCTIONALLY INDEPENDENT. NO PCP. STATES SHE HAD PREVIOUSLY SCHEDULED AN APPT WITH [facility], BUT DID NOT ATTEND APPT. SHE WILL RESCHEDULE. DISCUSSED THE IMPORTANCE OF ESTABLISHING CARE W/ PCP. NO HCP. CM PROVIDED EDUCATION AND OFFERED ASSISTANCE. PATIENT DECLINED. NO INSURANCE LISTED. PATIENT STATES SHE HAS [employer]. CM INFORMED IV. DP: NEPHRO TUBE IN PLACE, UNSURE IF TUBE WILL REMAIN IN PLACE ON DC. PATIENT NOT ELIGIBLE FOR HOME SERVICES D/T NO PCP. FAMILY CAN ASSIST W/ CARE IF NEEDED. HOME W/ FAMILY SUPPORT VIA PRIVATE TRANSPORT. CM WILL CONTINUE TO FOLLOW.
--- NOTE | 2023-05-28 15:02 | HO.POSTANES ---
Post Anesthesia Evaluation Post Anesthesia Evaluation Date of Service: 05/28/23 Vital Signs: Vital Signs Temp Pulse Resp BP Pulse Ox O2 Del Method 05/28/23 13:01 Room Air 05/28/23 09:16 Room Air 05/28/23 07:05 98 F 77 16 100/57 L 98 Room Air 05/28/23 04:00 97.6 F 61 18 115/60 98 Room Air Anesthesia: General Mental Status: Awake Pain Control: Satisfactory Nausea/Vomiting: None Hydration: Adequate Anesthesia-Related Issues: No Anes. Related Issues
[2023-05-28 15:03] VITALS: BP 116/65; PULSE 71; RESP 18; TEMP 36.4; O2SAT 97
[2023-05-28] MEDS: Acetaminophen 325 MG TABLET 975 MG PO (16:10)
[2023-05-28 19:39] VITALS: BP 113/59; PULSE 76; RESP 17; TEMP 36.8; O2SAT 96
[2023-05-29] VITALS (7 sets, daily range): BP systolic 110–131; BP diastolic 56–72; PULSE 63–73; RESP 16–18; TEMP 36.2–36.7; O2SAT 95–97
[2023-05-29] MEDS: cefTRIAXone sodium 1 GM in 0.9 % Sodium Chloride 50 ML IV ×2 (05:22→17:17)
[2023-05-29] MEDS: traMADoL HCL 50 MG TABLET PO (05:26)
[2023-05-29] MEDS: Acetaminophen 325 MG TABLET 975 MG PO ×3 (11:02→21:16)
--- NOTE | 2023-05-29 11:07 | P.PNUR_ITS ---
Subjective Subjective Date of Service: 05/29/23 Interval history: Urine culture returned E coli pansensitive Will discharge home on 14 days Levaquin Plan for outpatient procedure right side to manage stone Physical Exam 2 Vital Signs: Vital Signs: Last Vital Signs Temp 97.1 F 05/29/23 07:22 Pulse 73 05/29/23 07:22 Resp 16 05/29/23 07:22 BP 131/68 05/29/23 07:22 Pulse Ox 95 05/29/23 07:22 O2 Del Method Room Air 05/29/23 07:22 O2 Flow Rate 2 05/27/23 19:44 BMI result Body Mass Index 22.2 Const: General: cooperative, healthy appearing, comfortable and no acute distress Orientation/consciousness: patient oriented x3 HEENT: Face and sinus: Yes normal facial exam Mouth: moist mucous membranes Neck: Neck: Yes normal visual inspection, Yes full ROM and Yes trachea midline Chest: Chest palpation & inspection: normal inspection of the chest Resp: Effort & Inspection: normal respiratory effort, able to speak in complete sentences and no respiratory distress GI: Inspection: Yes normal to inspection Back/Spine/Pelvis: Cervical Spine: normal cervical lordosis Thoracic/Lumbar Spine: thoracic and lumbar spine normal to inspection Skin: General skin exam: no rashes or lesions noted Neuro: General: patient oriented x3, tone normal and moves all extremities Extrem: General: Yes normal to inspection and Yes capillary refill normal Urology Results Labs 05/28/23 06:15 05/28/23 06:15 Progress Note: A&P Assessment and plan (1) Pyelonephritis: Status: Acute (2) Ureterolithiasis: Status: Acute (3) Hydronephrosis: Status: Acute Plan DC home on antibiotics Follow-up outpatient Procedure Time Spent With Patient Time: Total time managing care of this patient today ____ minutes.
--- NOTE | 2023-05-29 13:18 | MHC.CM.PN ---
EMR REVIEWED AND CM MET WITH PT AT BEDSIDE. PER [facility] , PT DOES HAVE MH BENEFIT. PT HAS NO PCP THEREFORE WILL NOT BE ABLE TO HAVE A VNA. PT IS AWARE. CM WILL CONTINUE TO FOLLOW FOR ANY CHANGE IN DC PLAN/NEEDS.
--- NOTE | 2023-05-29 17:40 | PC.NURSE ---
Pt c/o intermittent dizziness. VSS. Encouraged to ring for assistance if needed. Nephrostomy tube draining zeferino/pink in color. Tolerating po in small amounts
[2023-05-30 03:00] VITALS: BP 141/78; PULSE 61; RESP 16; TEMP 36.4; O2SAT 97
[2023-05-30] MEDS: cefTRIAXone sodium 1 GM in 0.9 % Sodium Chloride 50 ML IV (05:01)
[2023-05-30 07:00] VITALS: BP 135/76; PULSE 64; RESP 18; TEMP 36.7; O2SAT 97
[2023-05-30] MEDS: Acetaminophen 325 MG TABLET 975 MG PO (08:54)
--- NOTE | 2023-05-30 12:15 | PM.DS ---
DS: Providers Provider Date of Service: 05/30/23 Date of admission: 05/27/23 14:05 Date of discharge: 05/30/23 Primary care physician: None Physician Admitting clinician: Patrice Hobbs Attending physician on admission: Patrice Hobbs Attending physician on discharge: Patrice Hobbs Discharging clinician: Pat Horan DS: Diagnosis Discharge Diagnosis (1) Pyelonephritis: Status: Acute (2) Ureterolithiasis: Status: Acute (3) Hydronephrosis: Status: Acute DS: Summary Hospital Course Hospital Course: 47-year-old female. Presented with 1 day history of right flank pain, fever, chills. Has had flank pain on and off for past 2-3 weeks. Associated with nausea and vomiting. No known stone history. No family history stones reported WBC 16.8, creatinine 0.85 Received ceftriaxone single dose Temperature up to 101.4 with pulse 104, BP 118/66 Imaging - CT A 0.8 x 0.5 x 0.6 cm calculus is noted in the right mid ureter approximately 3 cm distal to the ureteropelvic junction. There is proximal moderate hydroureteronephrosis with mild right perinephric stranding. S/P cystoscopy, right retrograde, retrograde stenting not possible due to impacted stone. Status post right nephrostomy stone. Continue outpatient levaquin for 14 days. Status at Discharge Cognitive/behavioral status at discharge: At baseline Functional status at discharge: independent ambulation Overall status at discharge: patient is back to baseline Time Attestation Total time managing care of this patient today: 33 mintues. Discharge Coordination Time (in mins): 35 mins Quality: Safe Use of Opioids Does Pt have an Active Cancer Diagnosis on the Problem List?: No Quality: Stroke Does the patient have a stroke diagnosis?: No Physical Exam Vital Signs: Vital Signs: Last Vital Signs Temp 98.0 F 05/30/23 07:00 Pulse 64 05/30/23 07:00 Resp 18 05/30/23 07:00 BP 135/76 05/30/23 07:00 Pulse Ox 97 05/30/23 07:00 O2 Del Method Room Air 05/30/23 07:00 O2 Flow Rate 2 05/27/23 19:44 BMI result Body Mass Index 22.2 DS: Data Data Completed and Pending Labs on day of discharge: Preliminary micro results at discharge 05/27/23 09:40 Blood Culture - Preliminary Blood - Venous No growth after 48 hours. 05/27/23 09:29 Blood Culture - Preliminary Blood - Venous No growth after 48 hours. Discharge Plan Discharge Anticipated Discharge Date/Time: 05/30/23 12:08 Patient Disposition: Home, Self-Care Discharge Diagnosis: Ureteral stone, UTI Referrals: Physician,None [Primary Care Provider] - 1 Week Discharge Medications: New levofloxacin 500 mg tablet 500 mg PO DAILY 14 Days Qty: 14 0RF Continued acetaminophen [Tylenol] 325 mg Tablet 325 mg PO QID PRN (Reason: Pain) Discharge Orders: Discharge Order (Routine); Ordered 05/30/23 Ordered By: Pat Horan Diet: Advance to usual diet Activity on Discharge: As tolerated Stand Alone Forms: Patient Portal Discharge page Care Plan Goals: Keep Nephrostomy to drainage. Follow up with Dr. Hobbs for stone management Health Concerns: Complete antibiotics as prescribed Plan of Treatment: Complete antibiotics as prescribed, Follow up with Dr. Hobbs Assessment: Stable
--- NOTE | 2023-05-30 13:03 | PC.NURSE ---
Nephrology Tube Education given to patient from [facility]. Stated understanding and care for tube, will follow up with Urology.
== END 2023-05-30 13:05 | disposition home or self-care (01) | DRG 463 ==
LOC: HO.ED 05-27 09:52 → HO.SSS 05-27 09:56 → HO.EDOVER 05-27 14:19 → HO.S3 05-27 14:44
PROVIDERS: Anesthesiology; Student in an Organized Health Care Education/Training Program; Admitting Provider Urology; Emergency Provider Emergency Medicine Emergency Medical Services; Visit Provider Urology
PROC: 0TJB8ZZ Inspection of Bladder, Via Natural or Artificial Opening Endoscopic (ICD-10-PCS; principal; 2023-05-27 12:30)
PROC: 0T9330Z Drainage of Right Kidney Pelvis with Drainage Device, Percutaneous Approach (ICD-10-PCS; principal; 2023-05-27 15:00)
DX: N13.6 Pyonephrosis (principal); B96.20 Unspecified Escherichia coli [E. coli] as the cause of diseases classified elsewhere; Z20.822 Contact with and (suspected) exposure to COVID-19
CPT/HCPCS: 36415; 50432; 74177; 80048; 80053; 81001; 83605; 84702; 85025; 85027; 87040; 87086; 87088; 87186; 87502; 87635; 99285; C1729; C1758; C1769; C1894; C2617; J0131; J0696; J1100; J1885; J2250; J2270; J2371; J2405; J2704; J3010; J7120; Q9967

== ENCOUNTER → 2023-05-27 01:59 | Outpatient (BNV) | payer MEDICAID, SELFPAY | PROVIDERS: Emergency Provider Emergency Medicine Emergency Medical Services; Visit Provider Urology | DX: N12 Tubulo-interstitial nephritis, not specified as acute or chronic (principal); N13.2 Hydronephrosis with renal and ureteral calculous obstruction | CPT/HCPCS: 52332; 99222; 99232; 99239 ==

== ENCOUNTER → 2023-05-27 13:30 | Outpatient (BNV) | payer MEDICAID, SELFPAY | PROVIDERS: Admitting Provider Urology; Emergency Provider Emergency Medicine Emergency Medical Services; Visit Provider Student in an Organized Health Care Education/Training Program | DX: N13.2 Hydronephrosis with renal and ureteral calculous obstruction (principal); Z96.0 Presence of urogenital implants | CPT/HCPCS: 50432 ==

== ENCOUNTER 2023-06-04 14:52 | Outpatient (AMB) | payer MEDICAID, SELFPAY ==
--- NOTE | 2023-06-04 14:58 | A.OFFVIS_ITS ---
Intake Intake Visit Reasons: yelonephritis, ureterolithiasis, hydronephrosis Intake Note: New patient is present for Pyelonephritis, UTI Antibiotic Allergies: None Blood Thinner: None Allergies No Known Allergies Allergy (Verified 06/04/23 15:03) HPI HPI Comments History of Present Illness Details Hudson is a pleasant [place]istan[place] female. She is seen for the following urologic conditions - nephrolithiasis Recent hospital admission Presented with pyelonephritis, urosepsis secondary to obstructing UPJ stone Unable to place stent from below PCN placed with intervention radiology Has been recovering Would plan on intervention with antegrade ureteroscopy, laser lithotripsy, stent placement Nephrolithiasis Imaging - CT A 0.8 x 0.5 x 0.6 cm calculus is no neal in the right mid ureter approximately 3 cm distal to the ureteropelvic junction. There is proximal moderate hydroureteronephrosis with mild right perinephric stranding. [facility] Surgical History History of Social History Household Members: Family Housing: House Do you presently have visiting nurse or other home services: No Patient Tobacco Use Status: Never used Tobacco Second Hand Smoke Exposure: No service: No Review of Systems Const Denies chills and Denies fever(s) Card Reports no additional complaints and Denies syncope Resp Denies cough GI Denies abdominal pain and Denies heartburn Reports as per HPI and Denies change in libido Neuro Denies syncope Psych Denies change in libido Endo Denies change in libido Physical Exam Const General: cooperative, healthy appearing, comfortable and no acute distress Orientation/consciousness: patient oriented x3 HEENT Face and sinus: Yes normal facial exam Mouth: moist mucous membranes Neck Neck: Yes normal visual inspection, Yes full ROM and Yes trachea midline Chest Chest palpation & inspection: normal inspection of the chest Resp Effort & Inspection: normal respiratory effort, able to speak in complete sentences and no respiratory distress GI Inspection: Yes normal to inspection Back/Spine/Pelvis Cervical Spine: normal cervical lordosis Thoracic/Lumbar Spine: thoracic and lumbar spine normal to inspection Skin General skin exam: no rashes or lesions noted Neuro General: patient oriented x3, gait normal, tone normal and moves all extremities Extrem General: Yes normal to inspection and Yes capillary refill normal Results AMB Urinalysis, Automated UA Leukoctes 15 Luis Alberto/uL Last Edit by Amairani Denise [facility] on 06/04/23 15:08 UA Nitrite Negative Last Edit by Amairani Denise, A on 06/04/23 15:08 UA Urobilinogen 0.2 mg/dL Last Edit by Amairani Denise, A on 06/04/23 15:0 8 UA Protein 100 mg/dL Last Edit by Amairani Denise, A on 06/04/23 15:08 UA pH 6.5 Last Edit by Amairani Denise, A on 06/04/23 15:08 UA Blood 80 Al/uL Last Edit by Amairani Denise, [facility] on 06/04/23 15:08 UA Specific [place] 1.015 Last Edit by Amairani Denise A on 06/04/23 15: 08 UA Ketone Negative Last Edit by Amairani Denise [facility] on 06/04/23 15:08 UA Bilirubin 0 mg/dL Last Edit by Amairani Denise, A on 06/04/23 15:08 UA Glucose 0 mg/dL Last Edit by Amairani Denise [facility] on 06/04/23 15:08 Assessment & Plan Assessment & Plan (1) Pyelonephritis: Code(s): N12 - Tubulo-interstitial nephritis, not specified as acute or chronic (2) Ureterolithiasis: Code(s): N20.1 - Calculus of ureter (3) Hydronephrosis: Code(s): N13.30 - Unspecified hydronephrosis Qualifiers: Hydronephrosis type: with renal calculous obstruction Qualified Code(s): N13.2 - Hydronephrosis with renal and ureteral calculous obstruction Plan Risks, benefits and alternatives to therapy were discussed. These include but are not limited to infection, bleeding, damage to local organs and tissues, need for further interventions. Anesthetic risks regarding cardiac arrhythmia, blood clots, and potential mortality were discussed. The patient understands the typical recovery time and the outpatient nature of the procedure. After consideration of these risks the patient gives full informed consent and they wish to move ahead with the procedure. Antegrade ureteroscopy with antegrade nephrostogram and laser lithotripsy with stent placement Orders: Orders AMB Urinalysis Automated Today Z13.9 - Encounter for screening, unspecified Patient Instructions: Imaging studies, laboratory and physical exam results were discussed and reviewed in detail. No major barriers to patient understanding were identified. An opportunity to ask questions regarding the treatment plan was provided. All questions were answered. The patient expressed understanding and agreement with the above treatment plan. The patient is aware they should contact our office by phone for worsening of their current condition or the appearance of new urologic symptoms. Compliance is encouraged with any medications and followup testing that is ordered. It is a privilege to participate in the urologic care of your patient. If you have any questions or concerns regarding treatment for the above conditions, or other urologic issues, please do not hesitate to contact me. The office telephone contact is [phone]. This note is constructed using voice recognition software. While every effort has been made to ensure accuracy waiter/waitress cocktail lounge errors may have been included. Yours sincerely, Dr Patrice Hobbs MD, [facility] - Urology Providers of Expert, Compassionate Care for the Genitourinary System Coding Level of Care Code Est Pt Level 4 (58706) Diagnoses Pyelonephritis N12 Ureterolithiasis N20.1 Hydronephrosis N13.2 Hydronephrosis type: with renal calculous obstruction
== END 2023-06-04 15:28 | disposition home or self-care (01) ==
PROVIDERS: Visit Provider Urology
DX: N12 Tubulo-interstitial nephritis, not specified as acute or chronic (principal); N13.2 Hydronephrosis with renal and ureteral calculous obstruction; Z13.9 Encounter for screening, unspecified
CPT/HCPCS: 99214

== ENCOUNTER → 2023-06-04 14:52 | Outpatient (BNVA) | payer MEDICAID, SELFPAY | PROVIDERS: Visit Provider Urology | DX: N12 Tubulo-interstitial nephritis, not specified as acute or chronic (principal); N20.1 Calculus of ureter; N13.2 Hydronephrosis with renal and ureteral calculous obstruction | CPT/HCPCS: 81003; 99212 ==

== ENCOUNTER 2023-06-29 12:53 | Day surgery (SDC) | payer MEDICAID, SELFPAY ==
--- NOTE | ~2023-06-29 | FL_ITS ---
EXAMINATION: XR FLUOROSCOPY WITH IMAGES CLINICAL INFORMATION: Antegrade ureteroscopy with laser therapy and ureteric stent placement. COMPARISON: Prior examinations, most recently 05/27/2023 TECHNIQUE: Fluoroscopy Supervised By: Dr. Patrice Hobbs. Fluoroscopy Time: 148.1 seconds. Cumulative Dose: 18.92 mGy. Images: 3. FINDINGS: The submitted images show contrast opacification of the right intrarenal collecting system and renal pelvis. There is placement of a double pigtail right ureteric stent, the proximal portion of which is visualized. FL/FL guidance in OR IMPRESSION: Intraoperative fluoroscopic guidance is provided during right urinary system urologic procedure. Please see the patient's Operative Report for full procedural details.
[2023-06-29 13:56] LABS: UPreg QC Valid YES; Urine Pregnancy NEGATIVE (NEGATIVE)
[2023-06-29 14:02] VITALS: BP 119/72; PULSE 72; RESP 18; TEMP 37; O2SAT 100; BMI 22.4
[2023-06-29] MEDS: Lactated Ringers 1,000 ML 999 ML IV (14:13)
--- NOTE | 2023-06-29 14:51 | P.CONAN_ITS ---
[facility] Active Problems Active Problems: All Active Problems UTI (urinary tract infection) (Acute) Ureterolithiasis (Acute) Family History Family history of problems with anesthesia: No Surgical History Surgical History History of History of Problems with Anesthesia: No Social History Social History Household Members: Family Housing: House Do you presently have visiting nurse or other home services: No Patient Tobacco Use Status: Never used Tobacco Second Hand Smoke Exposure: No Have you been hit, kicked, punched, or otherwise hurt by someone within the past year? If so, by whom?: No Are you DNR?: No Advance Directives: No Advance Directives Information Provided: Yes Nutrition Risks: No Nutritional Risk service: No Meds Allergies Allergy/AdvReac Type Severity Reaction Status Date / Time No Known Allergies Allergy Verified 06/04/23 15:03 Active Medications: Current Medications Lactated Ringer's (Lr) 1,000 mls @ 999 mls/hr IV .Q1H1M ASHLEY Stop: 06/29/23 15:15 Last Admin: 06/29/23 14:13 Dose: 999 mls/hr Home Medications ?Medication ?Instructions ?Recorded ?Confirmed ?Last Taken ?Type acetaminophen 325 mg tablet 325 mg PO QID PRN Pain 05/27/23 05/27/23 Unknown History (Tylenol) Exam Height,Weight and Vital Signs: Height 4 ft 11 in Weight 50.349 kg Last Vital Signs Temp 98.6 F 06/29/23 14:02 Pulse 72 06/29/23 14:02 Resp 18 06/29/23 14:02 BP 119/72 06/29/23 14:02 Pulse Ox 100 06/29/23 14:02 O2 Del Method Room Air 06/29/23 14:02 Pertinent Lab Results Pertinent Lab Results: Laboratory Tests 06/29/23 13:30 Urine Test NEGATIVE Airway Mallampati Class: III TM Dist: >3cm Neck ROM: Full Assessment and Plan Assessment Anesthesia Assessment: Anesthesia Plan Discussed and Chart Reviewed Final Anesthetic Review Family History of Problems with Anesthesia: No History of Problems with Anesthesia: No NPO: Yes ASA Class: II and Emergency Final Preanesthetic Review: No Changes in Pt Med Stat, Meds/Allgs Chart Reviewed, Consent Obtained/Reviewed and Anes Risks/Benef Reviewed Patient Risk: Low Procedure Risk: Low Anesthetic Plan Anesthetic Plan: GA Disposition: Standard PACU
--- NOTE | 2023-06-29 17:09 | P.CONAN_ITS ---
[facility] Active Problems Active Problems: All Active Problems UTI (urinary tract infection) (Acute) Ureterolithiasis (Acute) Past Medical History Functional capacity: independent ambulation Patient : No Family History Family history of problems with anesthesia: No Surgical History Surgical History History of History of Problems with Anesthesia: No Social History Social History Household Members: Family Housing: House Do you presently have visiting nurse or other home services: No Patient Tobacco Use Status: Never used Tobacco Second Hand Smoke Exposure: No Have you been hit, kicked, punched, or otherwise hurt by someone within the past year? If so, by whom?: No Are you DNR?: No Advance Directives: No Advance Directives Information Provided: Yes Nutrition Risks: No Nutritional Risk service: No Meds Allergies Allergy/AdvReac Type Severity Reaction Status Date / Time No Known Allergies Allergy Verified 06/04/23 15:03 Home Medications ?Medication ?Instructions ?Recorded ?Confirmed ?Last Taken ?Type acetaminophen 325 mg tablet 325 mg PO QID PRN Pain 05/27/23 05/27/23 Unknown History (Tylenol) Exam Height,Weight and Vital Signs: Height 4 ft 11 in Weight 50.349 kg Last Vital Signs Temp 98.6 F 06/29/23 14:02 Pulse 72 06/29/23 14:02 Resp 18 06/29/23 14:02 BP 119/72 06/29/23 14:02 Pulse Ox 100 06/29/23 14:02 O2 Del Method Room Air 06/29/23 14:02 Pertinent Lab Results Pertinent Lab Results: Laboratory Tests 06/29/23 13:30 Urine Test NEGATIVE Airway Mallampati Class: II TM Dist: >3cm Neck ROM: Full Heart: RRR Lungs: CTA Assessment and Plan Assessment Anesthesia Assessment: Anesthesia Plan Discussed Final Anesthetic Review Family History of Problems with Anesthesia: No History of Problems with Anesthesia: No NPO: Yes ASA Class: II and Emergency Final Preanesthetic Review: Meds/Allgs Chart Reviewed, Consent Obtained/Reviewed and Anes Risks/Benef Reviewed Patient Risk: Low Procedure Risk: Low Anesthetic Plan Anesthetic Plan: GA Disposition: Standard PACU
--- NOTE | 2023-06-29 17:17 | MHC.SHP ---
Pre-Procedural Eval Section A - 24 Hr Update-Section A only Date of Service: 06/29/23 The patient is an INPATIENT: No Changes since office visit: No Cold of Flu in the past 2 weeks, No New Medical Problems, No Changes in Medication and No Patient answered all questions The patient has been examined within 24 hours of the surgical procedure. The History & Physical has been completed within 30 days and I have reviewed it.: Yes Section B - Complete if H&P > 30 days Chief Complaint: Calculus of ureter Allergies: Allergies Allergy/AdvReac Type Severity Reaction Status Date / Time No Known Allergies Allergy Verified 06/04/23 15:03 Review of Systems Sugical H&P ROS: Negative: Constitution, Cardiovascular, Respiratory, Neurological, Psychiatric, Hem-Onc, Allergic/Immunologic, Gastrointestinal, Genitourinary, Musculoskeletal, Integumentary, Endocrine and Eyes/Ears/Nose/Throat Exam Surgical H&P Exam: Normal: HEENT, Normal: Heart, Normal: Lungs, Normal: Extremities, Normal: Abdomen, Normal: Skin and Normal: Neurological Plan Diagnosis/Plan: Unchanged (Right antegrade, Cystoscopy, right retrograde, ureteroscopy, laser lithotripsy, stent placement) I have reviewed the history and physical and performed a pertinent physical examination on my patient. No changes have occurred unless specified. Time Spent With Patient Time: Total time managing care of this patient today ____ minutes.
--- NOTE | 2023-06-29 18:40 | W.PM.OPN ---
Operative Note Operative Note Date of Service: 06/29/23 Narrative: PreOperative Diagnosis: Impacted upper right ureteric stone with hydronephrosis Post Operative Diagnosis: Upper right ureteric stone Procedure: - right antegrade nephrostogram - nephroureteric wire positioned - cystoscopy right dilatation of ureteric orifice under fluoroscopy - right ureteroscopy, laser lithotripsy, stone basketing - modifier 22 100% longer than typical due to access - right stent placement Surgeon: Dr Patrice Hobbs Anesthesia: General Indications for procedure: Prior admission with upper right ureteric impacted stone. Unable to get access from below. At that point in time had sepsis and nephrostomy tube placed. Here for completion procedure. Plan for antegrade nephrostogram and attempts to place nephro ureteric wire. Procedure: After informed consent was verified the patient was brought to the operating room and placed in a supine position. Anesthesia was administered per protocol. The patient was placed in a modified dorsal lithotomy position and prepped and draped in a sterile fashion. Safety pause time-out and side of surgery were confirmed. Images were available for review. Antibiotic administration confirmed. The right nephrostogram was access. Nephrostogram performed. Filling defects seen in right upper ureter. Angled Glidewire placed. Nephrostomy tube removed. Open-ended catheter placed. Through navigation technique the angled Glidewire was placed into the upper portion of the ureter. The open-ended catheter was advanced so it was in the superior aspect of the ureter. The wire was removed. A sensor guidewire was placed and was able to be navigated down into the bladder thus achieving nephro ureteric wire with access to the bladder. A 22 [place] Islander cystoscope was inserted per urethra. The urethra was without abnormality. The bladder was normal in its entirety. Both ureteric orifices were seen in normal position the wire was emerging from the right ureteric orifice. The wire was grasped and brought out through the ureter.. The rigid cystoscope was removed. A Naomi dilator was placed over the Sensor guidewire and used to dilate the ureteric orifice under fluoroscopy. The dilator was removed. The semi rigid ureteral scope was placed alongside the Sensor guidewire. Stone was encountered and imbedded in the upper portion of the ureter.. Using a 365 micro holmium laser fiber the stone was broken into small pieces using a combination of hammer and dusting techiques. Stone fragments were removed from the ureter using a sure catch 3 [place] Islander basket. Once the fragments were removed a decision was made to place a ureteric stent. Based on the height of the patient a 6 Fr x 24 stent was used. The string was removed from the stent prior to placement The rigid cystoscope was backloaded over the wire and advanced into the bladder. A 6 [place] Islander by 24 cm double-J stent was placed into the renal pelvis and bladder under a combination of fluoroscopy and direct visualization. The bladder was emptied. The patient tolerated the procedure well and was extubated in the operating room. They were transferred in stable condition to the recovery area. Pathology: Stone fragments Drains: Double-J stent as described above which should remain for 4 weeks
[2023-06-29 18:43] VITALS: BP 116/63; PULSE 80; RESP 15; TEMP 37.2; O2SAT 100
[2023-06-29 18:48] VITALS: BP 114/66; PULSE 80; RESP 16; O2SAT 97
[2023-06-29] MEDS: Phenazopyridine HCL 100 MG TABLET PO (18:49)
[2023-06-29] MEDS: Acetaminophen 1,000 MG/100 ML PIGGYBACK 400 MG IV (18:50)
[2023-06-29 18:53] VITALS: BP 113/68; PULSE 81; RESP 16; O2SAT 99
[2023-06-29 18:58] VITALS: BP 116/67; PULSE 78; RESP 16; O2SAT 99
[2023-06-29 19:13] VITALS: BP 117/59; PULSE 82; RESP 16; TEMP 36.7; O2SAT 100
== END 2023-06-29 19:19 | disposition home or self-care (01) ==
PROVIDERS: Anesthesiology; Visit Provider Urology
PROC: (CPT 52356; principal; 2023-06-29 15:10)
DX: N12 Tubulo-interstitial nephritis, not specified as acute or chronic (principal); N13.2 Hydronephrosis with renal and ureteral calculous obstruction
CPT/HCPCS: 52356; 52344; 50431; 81025; C1758; C1769; C2617; J0131; J0696; J1100; J1956; J2405; J2704; J3010; Q9967

== ENCOUNTER → 2023-06-29 12:53 | Outpatient (BNV) | payer MEDICAID, SELFPAY | PROVIDERS: Visit Provider Urology | DX: N13.2 Hydronephrosis with renal and ureteral calculous obstruction (principal) | CPT/HCPCS: 52356; 74420 ==

== ENCOUNTER 2023-07-21 17:43 | Emergency (ER) | payer MEDICAID, SELFPAY ==
--- NOTE | ~2023-07-21 | CT_ITS ---
EXAMINATION: CT ABDOMEN AND PELVIS WITHOUT CONTRAST CLINICAL INFORMATION: Persistent right flank pain, status post ureteric stent COMPARISON: CT abdomen and pelvis of 05/27/2023 TECHNIQUE: Multidetector volumetric imaging was performed from the superior aspect of the liver through the pubic symphysis. Sagittal and coronal reformatted images were obtained on the technologist's workstation. This CT examination was performed using dose optimization techniques as appropriate, variously including the following: *Automated exposure control *Adjustment of mA and/or kV according to patient size (this includes techniques or standardized protocols for targeted exams where dose is matched to indication/reason for exam; i.e. extremities or head) *Use of iterative reconstruction technique DLP: 354 mGy-cm FINDINGS: LUNG BASES: The visualized lung bases are unremarkable. LIVER, GALLBLADDER, AND BILIARY TREE: The liver is normal in size and attenuation. A lobulated contour/exophytic lesion from the hepatic dome posteriorly is again noted measuring 2.2 cm in transverse dimension. No additional liver lesions are noted within the limits of noncontrast study. No radiopaque filling defect is noted in the common bile duct. The common bile duct measures 0.9 cm in diameter. The gallbladder is unremarkable with no evidence of radiopaque gallstones, gallbladder wall thickening, or obvious pericholecystic inflammatory changes. PANCREAS: Unremarkable. SPLEEN: Unremarkable. ADRENAL GLANDS: Unremarkable. KIDNEYS AND URETERS: Right ureteric stent is in place with the proximal loop in the right renal pelvis and distal loop in the urinary bladder. There is significant interval decrease in the right hydronephrosis seen on the previous CT scan of 05/27/2023 with persistent mild hydronephrosis. No radiopaque right renal calculi are seen. No radiopaque calculi are seen along the course of the right ureteric stent. The left kidney is unremarkable within the limits of noncontrast study. No left hydroureter nephrosis. No left ureteric or renal radiopaque calculi. No significant perinephric stranding or fluid is seen bilaterally. BLADDER: Underdistended. No radiopaque calculi are seen. GASTROINTESTINAL TRACT: The stomach is largely decompressed and therefore not optimally evaluated. No abnormal small bowel dilatation. Colon is normal in caliber. No evidence of colonic wall thickening or pericolonic fat stranding. An appendix is normal. Moderate stool burden is noted in the right-sided colon. ABDOMINAL WALL: No significant hernia is appreciated. LYMPH NODES: Within the limits of noncontrast study no pathologically enlarged lymph nodes are demonstrated. VASCULAR: The aortoiliac vessels are normal in caliber. Minimal scattered calcific atherosclerosis of the aorta. PELVIC VISCERA: The uterus is mildly deviated to the left. Unremarkable CT appearance of uterus and adnexa. OSSEOUS STRUCTURES: No acute or suspicious osseous lesions. Probable osteopenia in the spine. CT/CT abdomen pelvis wo IV con IMPRESSION: 1. Right ureteric stent is in place with significant interval decrease in the right hydronephrosis seen on the previous CT scan of 05/27/2023 with persistent mild right hydronephrosis. No radiopaque renal or ureteric calculi are noted. No significant perinephric stranding or fluid is seen. 2. No acute abnormality. 3. Moderate stool burden in the right-sided colon. 4. A 2.2 cm lobulated contour/exophytic lesion from the hepatic dome posteriorly is again noted, not significantly changed compared to previous CT of 05/27/2023. Again consider dynamic liver MRI for further evaluation. 5. Stable mild dilatation of the common bile duct. Fleischner guidelines were followed.
[2023-07-21 18:06] VITALS: BP 141/85; PULSE 73; RESP 16; TEMP 37; O2SAT 100; BMI 22.2
--- NOTE | 2023-07-21 18:08 | ED_ITS ---
HPI - General Adult General Chief complaint: Urogenital-Female Stated complaint: ? uti Time Seen by Provider: 07/22/23 03:26 Source: patient Mode of arrival: ambulatory Limitations: no limitations History of Present Illness HPI narrative: Patient is status post right ureteric stent placement after lithotripsy on 06/28 was prescribed Levaquin for 10 days comes here for dysuria frequency lower abdominal discomfort for last 1 week after she finished antibiotics no nausea no vomiting no fever no chills Related Data Home Medications ?Medication ?Instructions ?Recorded ?Confirmed acetaminophen 325 mg tablet 325 mg PO QID PRN Pain 05/27/23 05/27/23 (Tylenol) Previous Rx's ?Medication ?Instructions ?Recorded levofloxacin 500 mg tablet 500 mg PO DAILY 14 days #14 tabs 05/30/23 phenazopyridine 100 mg tablet 100 mg PO TID PRN Spasm 4 days #12 06/29/23 (Pyridium) tabs tamsulosin 0.4 mg capsule 0.4 mg PO BEDTIME 14 days #14 caps 06/29/23 cefuroxime axetil 250 mg tablet 250 mg PO BID 10 days #20 tabs 07/22/23 Allergies Allergy/AdvReac Type Severity Reaction Status Date / Time levofloxacin Allergy Rash Verified 07/21/23 18:09 Review of Systems 2 Review of Systems: Yes all other systems are reviewed and are negative PMFSH Past Medical History Surgical History History of Social History Social History Household Members: Family Housing: House Do you presently have visiting nurse or other home services: No Patient Tobacco Use Status: Never used Tobacco Smoked in Last 30 Days: No Second Hand Smoke Exposure: No Use of substances other than those prescribed or required for medical reasons: No Advance Directives: No Advance Directives Information Provided: Yes Patient : No service: No Physical Exam ED Vital Signs: Vital Signs - 24 hr 07/21/23 18:06 07/22/23 05:56 Temperature 98.6 F 98.2 F Pulse Rate 73 84 Respiratory Rate 16 17 Blood Pressure 141/85 H 113/61 Pulse Oximetry 100 97 Oxygen Delivery Method Room Air Room Air BMI result Body Mass Index 22.2 Appearance: Alert. Oriented X3. No acute distress. Neck: Normal inspection. Neck supple. CVS: Normal heart rate and rhythm. Pulses normal. Respiratory: No respiratory distress. Equal air entry bilateral, Abdomen: Soft and nontender. Bowel sounds are present, no mass palpable, r CVA tenderness Skin: Skin warm and dry. Normal skin color. Normal skin turgor. Extremities: No lower extremity edema. No calf tenderness Neuro: Oriented X 3. Course Course Course Narrative: This is a Rapid Medical Examination (RME) performed by Kathryn Lou PA-C in triage. Full HPI, ROS, assessment and treatment plan per primary provider in the Main ED. 47 yo female here for eval of dysuria and right flank pain x2 days. endorses hx of renal stone surgery 3 wks ago. denies fever, chills, abd pain, n/v, hematuria. no cvat b/l. Plan: labs, UA Reevaluation(s) Reevaluation #1: CT show stent is in good place and is working Time: 09:11 Medications Administered Discontinued Medications Generic Name Dose Route Start Last Admin Trade Name Freq PRN Reason Stop Dose Admin Cefuroxime Axetil 250 mg 07/22/23 03:38 07/22/23 04:07 Cefuroxime Axetil 250 Mg Tablet PO 07/22/23 03:39 250 mg ONCE ONE Administration Medical Decision Making Medical Decision Making [facility] Narrative: Patient With UTI with right ureteric stent placement will prescribe Ceftin final CT scan report is pending Differential Diagnosis Differential Diagnoses: The differential diagnosis associated with the presentation includes UTI/stent displacement/kidney stone/pyelonephritis Lab Data [facility] Lab Attestation statement: I reviewed the patient's lab results. 07/21/23 18:25 07/21/23 18:25 Labs: Lab Results 07/21/23 07/21/23 Range/Units 18:25 18:31 WBC 5.7 (4.8-10.8) X10*3/uL RBC 4.53 D (4.20-5.50) X10*6/uL Hgb 12.1 D (12.0-16.0) g/dl Hct 37.2 D (37.0-47.0) % MCV 82.1 (80.0-98.0) fL MCH 26.7 L (27.0-33.0) pg MCHC 32.5 (31.0-35.0) g/dl RDW 12.9 (11.0-16.0) % Plt Count 195 (160-400) X10*3/uL MPV 12.2 (9.4-12.3) fL Immature Gran % (Auto) 0.2 (0.0-0.4) % Neut % (Auto) 49.0 (45-73) % Lymph % (Auto) 39.7 (20-40) % [facility] % (Auto) 8.0 (2-11) % Eos % (Auto) 2.4 (0-4) % Baso % (Auto) 0.7 (0-2) % Lymph # (Auto) 2.3 (1.2-4.9) X10*3/uL [facility] # (Auto) 0.5 (0.1-1.2) X10*3/uL Eos # (Auto) 0.1 (0.0-0.4) X10*3/uL Baso # (Auto) 0.0 (0.0-0.2) X10*3/uL Abs Immat Gran (auto) 0.01 (0.00-0.03) X10*3/uL Absolute Neuts (auto) 2.8 (2.0-8.3) x10*3/uL Absolute Nucleated RBC 0.000 (0.0-0.012) X10*3/uL Nucleated RBC % (auto) 0.0 (0.0-0.2) /100WBC Sodium 140 (135-145) mmol/L Potassium 4.5 (3.3-5.1) mmol/L Chloride 105 (96-108) mmol/L Carbon Dioxide 25 (22-29) mmol/L Anion Gap 15 (12-20) BUN 19 H (9-16) mg/dL Creatinine 0.84 (0.5-1.4) mg/dL Estim Creat Clear Calc 55.8 Estimated GFR > 60 Random Glucose 98 (60-115) mg/dL Calcium 10.3 H D (8.4-10.2) mg/dL Magnesium 1.9 (1.6-2.6) mg/dL Total Bilirubin 0.4 (0.0-1.0) mg/dL AST 36 H (5-31) U/L ALT 31 (0-31) U/L Alkaline Phosphatase 123 H (39-117) U/L Total Protein 9.1 H (6.5-8.0) g/dL Albumin 4.4 (3.5-5.0) g/dL Lipase 42 (8-78) U/L Urine Color Dark Yellow Urine Appearance Turbid Urine pH 5.5 (5.0-9.0) Ur Specific [place] >= 1.030 H (1.005-1.025) Urine Protein 300 (3+) H (Neg-Trace) mg/dL Urine Glucose (UA) Negative (Negative) mg/dL Urine Ketones Negative (Negative) mg/dL Urine Blood Large (3+) H (Negative) Urine Nitrite Positive H (Negative) Ur Leukocyte Esterase Small (1+) H (Negative) Urine RBC >20 H (0-2) /HPF Urine WBC >50 H (0-5) /HPF Ur Squamous Epith Cells 0-2 (0-2) /HPF Calcium Oxalate Crystal Present Urine Bacteria Trace (None Seen) Hyaline Casts 3-5 (0-2) /LPF Independent Interpretation I performed an independent interpretation of an: CT Scan Discharge Plan Discharge Clinical Impression: UTI (urinary tract infection), Ureterolithiasis Patient Disposition: Home, Self-Care Instructions: Urinary Tract Infection in Women (ED), Ureteral Stent Placement (DC) Additional Instructions: Take antibiotic as prescribed Drink plenty of fluids Follow with urologist if not better Prescriptions: New cefuroxime axetil 250 mg tablet 250 mg PO BID 10 Days Qty: 20 0RF No Action acetaminophen [Tylenol] 325 mg Tablet 325 mg PO QID PRN (Reason: Pain) levofloxacin 500 mg tablet 500 mg PO DAILY 14 Days Qty: 14 0RF tamsulosin 0.4 mg capsule 0.4 mg PO BEDTIME 14 Days Qty: 14 0RF phenazopyridine [Pyridium] 100 mg tablet 100 mg PO TID PRN (Reason: Spasm) 4 Days Qty: 12 0RF Print Language: Other
[2023-07-21 18:32] LABS: MANUAL DIFF FLAG NO
[2023-07-21 18:39] LABS: Appearance Urine Turbid; Color Urine Dark Yellow; Glucose Urine UA Negative (Negative); Leukocyte Esterase Urine Small (1+) (Negative); Nitrite Urine Positive (Negative); PH 5.5 (5.0-9.0); Specific Gravity - Urine >= 1.030 (1.005-1.025); UMIC TRIGGER UACC YES; Urine Blood Large (3+) (Negative); Urine Ketones Negative (Negative); Urine Protein 300 (3+) mg/dL (Neg-Trace)
[2023-07-21 18:48] LABS: Bacteria Urine Trace (None Seen); Calcium Oxalate Crystals Urine Present; RBC Urine >20 /HPF (0-2); Squamous Epithelial Cell Urine 0-2 /HPF (0-2); UACC Culture Trigger YES; WBC Urine >50 /HPF (0-5)
[2023-07-21 19:05] LABS: Basophils Percent Auto 0.7 % (0-2); Eosinophils Absolute Auto 0.1 X10*3/uL (0.0-0.4); Eosinophils Percent Auto 2.4 % (0-4); Hematocrit 37.2 % (37.0-47.0); Hemoglobin 12.1 g/dl (12.0-16.0); Imm Gran Abs Auto 0.01 X10*3/uL (0.00-0.03); Imm Gran Pct Auto 0.2 % (0.0-0.4); Lymphocytes Absolute Auto 2.3 X10*3/uL (1.2-4.9); Lymphocytes Percent Auto 39.7 % (20-40); Mean Corpuscular HGB Conc 32.5 g/dl (31.0-35.0); Mean Corpuscular Hemoglobin 26.7 pg (27.0-33.0); Mean Corpuscular Volume 82.1 fL (80.0-98.0); Mean Platelet Volume 12.2 fL (9.4-12.3); Monocytes Absolute Auto 0.5 X10*3/uL (0.1-1.2); Neutrophils Absolute Auto 2.8 x10*3/uL (2.0-8.3); Platelet Count 195 X10*3/uL (160-400); Red Blood Count 4.53 X10*6/uL (4.20-5.50); Red Cell Distribution Width 12.9 % (11.0-16.0); White Blood Count 5.7 X10*3/uL (4.8-10.8)
[2023-07-21 19:32] LABS: Alanine Aminotransferase 31 U/L (0-31); Albumin Level 4.4 g/dL (3.5-5.0); Alkaline Phosphatase 123 U/L (39-117); Anion Gap 15 (12-20); Aspartate Amino Transferase 36 U/L (5-31); Bilirubin Total 0.4 mg/dL (0.0-1.0); Blood Urea Nitrogen 19 mg/dL (9-16); Calcium 10.3 mg/dL (8.4-10.2); Carbon Dioxide 25 mmol/L (22-29); Chloride 105 mmol/L (96-108); Creatinine Clr Calc Pharmacy 55.8; Estimated Glomerular Filt Rate > 60; Glucose Random 98 mg/dL (60-115); Lipase 42 U/L (8-78); Magnesium 1.9 mg/dL (1.6-2.6); Potassium 4.5 mmol/L (3.3-5.1); Sodium 140 mmol/L (135-145); Total Protein 9.1 g/dL (6.5-8.0)
[2023-07-22] MEDS: cefuroxime axetiL 250 MG TABLET PO (04:07)
[2023-07-22 05:56] VITALS: BP 113/61; PULSE 84; RESP 17; TEMP 36.8; O2SAT 97
[2023-07-22 09:50] VITALS: BP 107/57; PULSE 70; RESP 14; O2SAT 96
[2023-07-22 09:55] VITALS: BP 107/57; PULSE 70; RESP 14; TEMP -17.7; TEMP 0; O2SAT 96
== END 2023-07-22 09:56 | disposition home or self-care (01) ==
PROVIDERS: Physician Assistant Medical; Emergency Provider Internal Medicine
DX: N39.0 Urinary tract infection, site not specified (principal); N20.1 Calculus of ureter; R30.0 Dysuria; R10.30 Lower abdominal pain, unspecified; R35.0 Frequency of micturition
CPT/HCPCS: 36415; 74176; 80053; 81001; 83690; 83735; 85025; 87086; 99284

== ENCOUNTER 2023-07-28 11:47 | Outpatient (REF) | payer MEDICAID, SELFPAY | END 2023-07-28 11:48 | disposition home or self-care (01) | LOC: HO.HHCLNP 11:47 | PROVIDERS: Visit Provider Nurse Practitioner Family | DX: R30.0 Dysuria (principal) | CPT/HCPCS: 87086 ==

== ENCOUNTER 2023-07-30 14:34 | Outpatient (AMB) | payer MEDICAID, SELFPAY ==
--- NOTE | 2023-07-30 14:52 | A.OFFVIS_ITS ---
Intake Visit Reasons: cysto/stent removal Intake Note: Patient presents today for a CYSTOSCOPY Procedure: Meds: Cefuroxime, Pyridium & Tamsulosin Allergies to Antibiotic: Levofloxacin Blood Thinner: None Disposable Uro-G HD Cystoscope Cannula: Lot: [id number] Exp: 03/03/2026 Medical Scientist Required: No Accompanied by: Self / Same As Patient Allergies levofloxacin Allergy (Verified 07/30/23 16:02) Rash [facility] Comments Details: Hudson is a 47-year-old Iraqi female who presents for cystoscopy stent removal. She had a an impacted right ureteral stone which required nephrostomy drainage followed by ureteroscopy laser lithotripsy. 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 Cystoscopy stent was removed without difficulty. I have discussed diet modification to decrease risk of forming more kidney stones. I have discussed low oxalate diet and specific foods to avoid including certain green leafy vegetables, chocalate, nuts, tea, beets, rubarb; low sodium, decreased use of animal protein and the importance of hydration drinking up to 2-2.5 liters of fluids and use of adding lemon to water to increase citrate in the diet. A pamphlet is also provided today and will have her do a 24 hour urine collection. 30 minutes spent in review of records pertaining to this visit and including [id number] discussion with the patient and documentation of this visit. [facility] Surgical History History of Social History (System 07/30/23 @ 16:02 by Carine Ann) Household Members: Family Housing: House Do you presently have visiting nurse or other home services: No Patient Tobacco Use Status: Never used Tobacco Second Hand Smoke Exposure: No service: No Review of Systems Const All systems reviewed & are unremarkable except as noted in HPI and below Reports no additional complaints Eyes Reports no additional complaints ENT Reports no additional complaints Card Reports no additional complaints Resp Reports no additional complaints GI Reports no additional complaints Reports as per HPI Musc Reports no additional complaints Skin/Breast Reports system reviewed and no additional complaints, except as documented Neuro Reports no additional complaints Psych Reports no additional complaints Endo Reports no additional complaints Donte/Lymph Reports no additional complaints Aller/Immun Reports no additional complaints Office Procedures Cystoscopy Consent Discussed risk and benefit or proposed procedure with the patient. Information consent for procedure given to the patient. Discussed technical aspects, risks, benefits and alternatives in full. Addressed all of the patient's questions and concerns regarding the procedure. The patient demonstrated knowledge and understanding. They wish to proceed with this procedure. Preparation The patient was prepped in the usual manner. A regional production manager was present and in the room. Genitalia was prepped with betadine solution in a sterile manner. Lidocaine Jelly 2% was placed into the urethra and 16Fr flexible Olympus cystoscope was inserted into the meatus after adequate lubrication. Procedure Time out per protocol performed. Bladder Inspection Cystoscopy findings: mild edema right ureteral orifice which is expected, distal end of ureteral stent visualized. The grasping forceps were used and the stent was removed without difficulty. [id number] with stent removal DISPOSABLE SCOPE URO-G FLEXIBLE SCOPE Procedure code (CPT) selection complete Office Meds lidocaine HCl 2 % mucosal jelly in applicator Performing Provider: Pat Horan MD Performing Location: [facility] Administered by: Marco Haney LPN on 07/30/23 15:06 Dose Route Admin Location Dispensed Lot Number Expiration Date [facility] Trials Manager 10 mL intra-urethral 20 mL nitrofurantoin monohydrate/macrocrystals 100 mg capsule Performing Provider: Pat Horan MD Performing Location: [facility] Documented (not given) by: Marco Haney LPN on 07/30/23 15:06 Reason Not Given: Not Medically Necessary naproxen 500 mg tablet Performing Provider: Pat Horan MD Performing Location: [facility] Administered by: Marco Haney LPN on 07/30/23 15:06 Dose Route Admin Location Dispensed Lot Number Expiration Date [facility] Trials Manager 500 mg PO 1 tab Results AMB Urinalysis, Automated UA Leukoctes 500 Luis Alberto/uL Last Edit by LESLI Ross on 07/30/23 15:05 3+ Ángela Banegas 07/30/23 15:05 UA Nitrite Negative Last Edit by Ángela Banegas Jin on 07/30/23 15:05 UA Urobilinogen 2 mg/dL Last Edit by [facility] on 07/30/23 15:05 1+ Ángela Banegas 07/30/23 15:05 UA Protein 300 mg/dL Last Edit by [facility]ngela [facility]eg[facility] on 07/30/23 15:05 3+ Ángela Banegas 07/30/23 15:05 UA pH 6.0 Last Edit by Ángela [facility]egas [facility] on 07/30/23 15:05 UA Blood 200 Al/uL Last Edit by Ángela [facility]eg[facility] on 07/30/23 15:05 3+ Ángela Banegas 07/30/23 15:05 UA Specific [place] 1.015 Last Edit by Ángela Banegas [facility] on 07/30/23 15: 05 UA Ketone Negative Last Edit by Ángela [facility]eg[facility] on 07/30/23 15:05 5 mg/dL Ángela Banegas 07/30/23 15:05 UA Bilirubin 2 mg/dL Last Edit by Ángela [facility]eg[facility] on 07/30/23 15:05 2 mg/dL Ángela Banegas 07/30/23 15:05 UA Glucose 100 mg/dL Last Edit by Ángela [facility]egas [facility] on 07/30/23 15:05 Results Reviewed Results Reviewed: Laboratory Last Values Urine pH (Auto) 6.0 07/30/23 14:53 Specific [place] (Auto) 1.015 07/30/23 14:53 Urine Protein (Auto) 300 mg/dL 07/30/23 14:53 Glucose (UA)(Auto) 100 mg/dL 07/30/23 14:53 Urine Ketones (Auto) Negative 07/30/23 14:53 Urine Blood (Auto) 200 Al/uL 07/30/23 14:53 Urine Nitrite (Auto) Negative 07/30/23 14:53 Urine Bilirubin (Auto) 2 mg/dL 07/30/23 14:53 Urine Urobilinogen (Auto) 2 mg/dL 07/30/23 14:53 Leukocyte Esterase (Auto) 500 Luis Alberto/uL 07/30/23 14:53 Date of Service: 07/22/23 EXAMINATION: CT ABDOMEN AND PELVIS WITHOUT CONTRAST CLINICAL INFORMATION: Persistent right flank pain, status post ureteric stent COMPARISON: CT abdomen and pelvis of 05/27/2023 TECHNIQUE: Multidetector volumetric imaging was performed from the superior aspect of the liver through the pubic symphysis. Sagittal and coronal reformatted images were obtained on the technologist's workstation. This CT examination was performed using dose optimization techniques as appropriate, variously including the following: *Automated exposure control *Adjustment of mA and/or kV according to patient size (this includes techniques or standardized protocols for targeted exams where dose is matched to indication/reason for exam; i.e. extremities or head) *Use of iterative reconstruction technique DLP: 354 mGy-cm FINDINGS: LUNG BASES: The visualized lung bases are unremarkable. LIVER, GALLBLADDER, AND BILIARY TREE: The liver is normal in size and attenuation. A lobulated contour/exophytic lesion from the hepatic dome posteriorly is again noted measuring 2.2 cm in transverse dimension. No additional liver lesions are noted within the limits of noncontrast study. No radiopaque filling defect is noted in the common bile duct. The common bile duct measures 0.9 cm in diameter. The gallbladder is unremarkable with no evidence of radiopaque gallstones, gallbladder wall thickening, or obvious pericholecystic inflammatory changes. PANCREAS: Unremarkable. SPLEEN: Unremarkable. ADRENAL GLANDS: Unremarkable. KIDNEYS AND URETERS: Right ureteric stent is in place with the proximal loop in the right renal pelvis and distal loop in the urinary bladder. There is significant interval decrease in the right hydronephrosis seen on the previous CT scan of 05/27/2023 with persistent mild hydronephrosis. No radiopaque right renal calculi are seen. No radiopaque calculi are seen along the course of the right ureteric stent. The left kidney is unremarkable within the limits of noncontrast study. No left hydroureter nephrosis. No left ureteric or renal radiopaque calculi. No significant perinephric stranding or fluid is seen bilaterally. BLADDER: Underdistended. No radiopaque calculi are seen. GASTROINTESTINAL TRACT: The stomach is largely decompressed and therefore not optimally evaluated. No abnormal small bowel dilatation. Colon is normal in caliber. No evidence of colonic wall thickening or pericolonic fat stranding. An appendix is normal. Moderate stool burden is noted in the right-sided colon. ABDOMINAL WALL: No significant hernia is appreciated. LYMPH NODES: Within the limits of noncontrast study no pathologically enlarged lymph nodes are demonstrated. VASCULAR: The aortoiliac vessels are normal in caliber. Minimal scattered calcific atherosclerosis of the aorta. PELVIC VISCERA: The uterus is mildly deviated to the left. Unremarkable CT appearance of uterus and adnexa. OSSEOUS STRUCTURES: No acute or suspicious osseous lesions. Probable osteopenia in the spine. IMPRESSION: 1. Right ureteric stent is in place with significant interval decrease in the right hydronephrosis seen on the previous CT scan of 05/27/2023 with persistent mild right hydronephrosis. No radiopaque renal or ureteric calculi are noted. No significant perinephric stranding or fluid is seen. 2. No acute abnormality. 3. Moderate stool burden in the right-sided colon. 4. A 2.2 cm lobulated contour/exophytic lesion from the hepatic dome posteriorly is again noted, not significantly changed compared to previous CT of 05/27/2023. Again consider dynamic liver MRI for further evaluation. 5. Stable mild dilatation of the common bile duct. DD/ EXAMINATION: CT ABDOMEN AND PELVIS WITH CONTRAST CLINICAL INFORMATION: Right lower quadrant abdominal pain COMPARISON: None available. TECHNIQUE: Multidetector volumetric images were obtained from the superior aspect of the liver through the pubic symphysis following administration 85 mL of Omnipaque 350 intravenous contrast. Sagittal and coronal reformatted images were obtained on the technologist's workstation. Oral contrast: No This CT examination was performed using dose optimization techniques as appropriate, variously including the following: *Automated exposure control *Adjustment of mA and/or kV according to patient size (this includes techniques or standardized protocols for targeted exams where dose is matched to indication/reason for exam; i.e. extremities or head) *Use of iterative reconstruction technique DLP: 334 mGy-cm FINDINGS: LUNG BASES: The visualized lung bases are unremarkable. LIVER, GALLBLADDER, AND BILIARY TREE: Exophytic liver contour nodularity is noted at the hepatic dome posteriorly measuring measuring 2.2 cm in transverse dimension and 1.6 cm in AP dimension. (4 image 90, series 7 image 45). The liver is otherwise unremarkable. No intrahepatic biliary ductal dilatation. The common bile duct is mildly prominent in size measuring 0.9 cm. Common bile duct is dilated up to the ampulla. No intraductal radiopaque filling defects are noted. The gallbladder is unremarkable with no evidence of radiopaque gallstones, gallbladder wall thickening, or obvious pericholecystic inflammatory changes. PANCREAS: Unremarkable. SPLEEN: Unremarkable. ADRENAL GLANDS: Unremarkable. KIDNEYS AND URETERS: A 0.8 x 0.5 x 0.6 cm calculus is noted in the right mid ureter approximately 3 cm distal to the ureteropelvic junction. There is proximal moderate hydroureteronephrosis with mild right perinephric stranding. Significant kinking is noted in the proximal right ureter as best seen on the coronal reformatted images (series 7 image 29). Mild enhancement of the wall of the right renal pelvis and right ureter proximal to the level of the calculus is noted. The left kidney is There is somewhat patchy heterogeneous enhancement of the right renal parenchyma. A 1.2 cm low-attenuation is noted in the lateral cortex of the lower pole of the right kidney which does not represent a cyst by CT Hounsfield units criteria. No evidence of left hydroureter nephrosis of left perinephric stranding. No additional radiopaque calculi are noted in the kidneys and ureters. BLADDER: The bladder is largely decompressed and therefore not optimally evaluated. No evidence of radiopaque calculi in the bladder. Even though the latter is collapsed the bladder wall thickening appears to be somewhat greater than expected for a collapsed bladder. There is enhancement of the bladder mucosa. GASTROINTESTINAL TRACT: The stomach is decompressed and therefore not optimally evaluated. No abnormal small bowel dilatation. An appendix is normal. The colon is normal in caliber. No evidence of colonic wall thickening or pericolonic fat stranding. Peritoneal cavity: No evidence of free intraperitoneal air or fluid. ABDOMINAL WALL: No significant hernia is appreciated. LYMPH NODES: No evidence of pathologically enlarged lymph nodes VASCULAR: The aortoiliac vessels are normal in caliber. Incidental note is made of an accessory left renal artery supplying the lower pole. Minimal calcific atherosclerosis of the aortoiliac vessels. PELVIC VISCERA: Unremarkable CT appearance of the uterus, ovaries and adnexa. OSSEOUS STRUCTURES: No acute or suspicious osseous abnormalities. Probable osteopenia. IMPRESSION: 1. Normal appendix. 2. A 0.8 x 0.5 x 0.6 cm calculus in the right mid ureter approximately 3 cm distal to the ureteropelvic junction resulting in moderate proximal hydroureteronephrosis. Mild enhancement of the wall of the right renal pelvis and right ureter proximal to the level of the calculus is noted. Mild right perinephric stranding is noted. There is somewhat patchy heterogeneous enhancement of the right renal parenchyma which may represent delayed nephrogram however possibility of renal parenchymal infections process cannot be completely excluded. No evidence of right renal parenchymal abscess or perinephric abscess at this time. 3. A 1.2 cm low-attenuation lesion in the lateral cortex of the lower pole of the right kidney does not represent a cyst by CT Hounsfield units criteria. Recommend focused ultrasound correlation. 4. The bladder is largely decompressed and therefore not optimally evaluated. Even though the bladder is collapsed, the wall thickening appears to be somewhat greater than expected for a collapsed bladder and there is enhancement of the bladder mucosa, recommend clinical correlation and correlation with urinalysis. 5. Exophytic somewhat isodense liver contour nodularity at the hepatic dome posteriorly measuring 2.2 cm in transverse dimension and 1.6 cm in AP dimension. Underlying lesion is difficult to exclude. Recommend further evaluation with dynamic liver MRI. 6. Probable osteopenia. Assessment & Plan Assessment & Plan (1) UTI (urinary tract infection): Code(s): N39.0 - Urinary tract infection, site not specified Category: Medical (2) Ureterolithiasis: Code(s): N20.1 - Calculus of ureter Category: Medical (3) Obstructive uropathy: Code(s): N13.9 - Obstructive and reflux uropathy, unspecified Category: Medical Plan 24 hr urinecollection. Renal ultrasound Orders: Orders AMB Urinalysis Automated 07/30/23 Z13.9 - Encounter for screening, unspecified AMB Cystoscopy 07/30/23 N20.1 - Calculus of ureter US renal BI 1 Month N13.2 - Hydronephrosis with renal and ureteral calculous obstruction Patient Instructions: The patient had an opportunity to ask questions regarding treatment plan. The patient expressed understanding and agreement with the above treatment plan. The patient is aware they should contact our office by phone for worsening of their current condition or the appearance of new symptoms. Compliance is encouraged with any medications and followup testing that is ordered. It is a privilege to be allowed the opportunity to participate in the urologic care of your patient. If you have any questions or concerns regarding treatment for the above conditions please do not hesitate to contact me. The office telephone contact is [phone]. This note is constructed in part using voice recognition software. While every effort has been made to ensure accuracy fan installer errors may have been included. Yours sincerely, Pat Horan MD Coding Level of Care Code Est Pt Level 4 (92383) Diagnoses UTI (urinary tract infection) N39.0 Ureterolithiasis N20.1 Obstructive uropathy N13.9 CPT Codes Cystoscopy - CPT: 99521-[id number] with stent removal ([id number])
== END 2023-07-30 15:47 | disposition home or self-care (01) ==
PROVIDERS: PCP Nurse Practitioner Family; Referring Provider Nurse Practitioner Family; Visit Provider Urology
DX: N20.1 Calculus of ureter (principal); Z96.0 Presence of urogenital implants; Z13.9 Encounter for screening, unspecified
CPT/HCPCS: 52310; 99214

== ENCOUNTER → 2023-07-30 14:34 | Outpatient (BNVA) | payer MEDICAID, SELFPAY | PROVIDERS: Visit Provider Urology | DX: Z48.816 Encounter for surgical aftercare following surgery on the genitourinary system (principal) | CPT/HCPCS: 52310; 81003; 99212 ==

== ENCOUNTER 2023-08-18 13:14 | Outpatient (REF) | payer MEDICAID, SELFPAY ==
--- NOTE | ~2023-08-18 | US_ITS ---
EXAMINATION: US RETROPERITONEAL LIMITED (RENAL ONLY) CLINICAL INFORMATION: Hydronephrosis with renal and ureteral calculus obstruction. Status post removal of stent. COMPARISON: CT abdomen and pelvis 07/22/2023 and 05/27/2023. TECHNIQUE: Real-time imaging of the kidneys. FINDINGS: RIGHT KIDNEY: 10.1 x 4.0 x 4.0 cm (SAG x AP x TRV). The kidney is normal in size, contour, and echogenicity. Renal cortical thickness is normal. No focal parenchymal lesions. Moderate right hydronephrosis, increased from prior CT. The previously seen stent is no longer visible with reported history of stent removal. 2 mm possible calculus in the mid kidney is not visible on prior CT and likely ultrasound artifact. LEFT KIDNEY: 10.8 x 4.2 x 4.1 cm (SAG x AP x TRV). The kidney is normal in size, contour, and echogenicity. Renal cortical thickness is normal. No calculi or focal parenchymal lesions. No hydronephrosis. BLADDER: Bilateral ureteral jets are demonstrated. US/US renal BI IMPRESSION: Recurrent moderate right hydronephrosis.
== END 2023-08-18 13:15 | disposition home or self-care (01) ==
LOC: HO.US 13:14
PROVIDERS: PCP Nurse Practitioner Family; Visit Provider Urology
DX: N13.2 Hydronephrosis with renal and ureteral calculous obstruction (principal)
CPT/HCPCS: 76775

== ENCOUNTER 2023-09-01 12:50 | Outpatient (REF) | payer MEDICAID, SELFPAY ==
--- NOTE | ~2023-09-01 | MM_ITS ---
EXAMINATION: MM SCREENING DIGITAL BREAST TOMOSYNTHESIS, BILATERAL CLINICAL INFORMATION: Screening. Asymptomatic. COMPARISON: Mammography: This is a baseline mammogram. TECHNIQUE: Digital breast tomosynthesis is performed in both the craniocaudal and mediolateral oblique views along with computer-aided detection (CAD). Synthesized 2D images are generated from the tomosynthesis. FINDINGS: The breasts are heterogeneously dense, which may obscure small masses (ACR BI-RADS breast composition Category c). There are no significant masses, abnormal calcifications, or other abnormalities. MM/MM tomosynthesis screening BI IMPRESSION: No mammographic evidence of malignancy. ASSESSMENT: BI-RADS BI-RADS 1 - Negative RECOMMENDATION: Routine annual mammography screening. 1 year F/U This examination should not preclude the clinical evaluation of a suspicious palpable abnormality. This patient's information was entered into a reminder system with a target due date for their next mammogram.
== END 2023-09-01 12:51 | disposition home or self-care (01) ==
LOC: HO.MAMMO 12:50
PROVIDERS: PCP Student in an Organized Health Care Education/Training Program; Visit Provider Student in an Organized Health Care Education/Training Program
DX: Z12.31 Encounter for screening mammogram for malignant neoplasm of breast (principal)
CPT/HCPCS: 77063; 77067

== ENCOUNTER → 2023-09-01 13:00 | Outpatient (BNV) | payer MEDICAID, SELFPAY | PROVIDERS: PCP Student in an Organized Health Care Education/Training Program; Visit Provider Radiology Diagnostic Radiology | DX: Z12.31 Encounter for screening mammogram for malignant neoplasm of breast (principal) | CPT/HCPCS: 77063; 77067 ==

== ENCOUNTER 2023-12-08 08:46 | Outpatient (REF) | payer OTHER, SELFPAY ==
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
== END 2023-12-08 08:47 | disposition home or self-care (01) ==
LOC: HO.XRAY 08:46
PROVIDERS: PCP Internal Medicine; Visit Provider Internal Medicine
DX: M25.511 Pain in right shoulder (principal); M25.571 Pain in right ankle and joints of right foot; V89.2XXD Person injured in unspecified motor-vehicle accident, traffic, subsequent encounter
CPT/HCPCS: 73030; 73600

== ENCOUNTER 2023-12-10 10:35 | Outpatient (AMB) | payer MEDICAID, SELFPAY ==
--- NOTE | 2023-12-10 10:36 | A.OFFVIS_ITS ---
Intake Visit Reasons: 3m/Mobclix Intake Note: Patient presents today for follow up on: utererolithiasis Antibiotic Allergies: None Blood Thinner: None Home Organizer Required: No Accompanied by: Self / Same As Patient Allergies levofloxacin Allergy (Verified 12/12/23 16:14) Rash Medication List - Last Reconciled 12/12/23 by MIKE Cochran acetaminophen (Tylenol) 325 mg PO QID PRN potassium citrate ER 20 mEq (2 x 10 mEq (1,080 mg)) PO BID 90 days HPI Comments Details: Hudson is a pleasant 48-year-old Burm[place] female patient. 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 She presents to the office today for follow-up of her nephrolithiasis. In discussion with the patient today she reports since her last office visit here approximately 5 months ago she has had no bothersome urinary issues or concerns. Recent renal imaging results reviewed with the patient today. Right kidney with moderate right hydronephrosis increased from prior CT. Possible 2 mm calculus in the mid kidney. Left kidney with no hydronephrosis, lesions, and or renal calculi. Recent 24 hour urine collection results reviewed with the patient today. We discussed low urine volume of a proximally 1. 4 L, urine calcium is borderline elevated at 201, marked hypocitraturia 187, high urine pH 6.6. We discussed diet modification to decrease risk of forming more kidney stones. We discussed importance of hydration and drinking up to 2-2.5 liters of fluids and use of adding lemon to water to increase citrate in the diet. A pamphlet was also provided today and will have her repeat 24 hour urine collection after initiation of potassium citrate b.i.d. as discussed. We discussed obtaining nuclear renal scan for further assessment evaluation of increased right-sided moderate hydro noted on recent imaging. We discussed at length potential causes of hydronephrosis. She otherwise denies any bothersome urinary issues. She denies urinary urgency, urinary frequency, incontinence, nocturia, hematuria, dysuria, foul smelling urine, changes to urinary stream, flank pain, fever, and or chills. She is happy with her current voiding parameters. In office urinalysis results reviewed with the patient today. BUN and creatinine results reviewed and trended with the patient today. We discussed repeat BUN and creatinine for further assessment evaluation. She otherwise offers no other issues or concerns at this time. BUN: 05/23 16, 05/23 17, 07/23 19 Creatinine: 05/23 0.85, 05/23 0.79, 07/23 0.84 [facility] Surgical History History of Social History Household Members: Family Housing: House Do you presently have visiting nurse or other home services: No Patient Tobacco Use Status: Never used Tobacco Second Hand Smoke Exposure: No service: No Review of Systems Const All systems reviewed & are unremarkable except as noted in HPI and below Physical Exam Const General: cooperative, healthy appearing, comfortable, no acute distress, well developed, alert and awake Orientation/consciousness: patient oriented x3 Limitations: no limitations HEENT Head: Yes normal to inspection, Yes normocephalic and Yes atraumatic Ears: hearing grossly normal bilaterally Eyes General: appearance normal, both eyes and all related structures Neck Neck: Yes normal visual inspection and Yes trachea midline Chest Chest palpation & inspection: normal inspection of the chest Resp Effort & Inspection: normal respiratory effort and able to speak in complete sentences Cardio Rate: regular rate GI Inspection: Yes normal to inspection General: Yes no CVA tenderness Back/Spine/Pelvis Back: no CVA tenderness Skin General skin exam: no rashes or lesions noted Neuro General: patient oriented x3 Extrem General: Yes normal to inspection Psych Appearance: grossly normal and well kempt Mental Status: mental status grossly normal Speech and movement: Normal speech and movement present and Clear speech present Affect: normal affect Attitude: cooperative Thought process: Normal thought process present Thought content: Normal thought content present Insight: Fair insight present (Psych) Judgement: Fair judgement present (Psych) Results AMB Urinalysis, Automated UA Leukoctes 0 Luis Alberto/uL Last Edit by Maday Hanks on 12/10/23 10:52 UA Nitrite Last Edit by Maday Hanks on 12/10/23 10:52 UA Urobilinogen 0.2 mg/dL Last Edit by Maday Hanks on 12/10/23 10:52 UA Protein 15 mg/dL Last Edit by Maday Hanks on 12/10/23 10:52 UA pH 6.0 Last Edit by Maday Hanks on 12/10/23 10:52 UA Blood 200 Al/uL Last Edit by Maday Hanks on 12/10/23 10:52 UA Specific [place] 1.015 Last Edit by Maday Hanks on 12/10/23 10:52 UA Ketone Last Edit by Maday Hanks on 12/10/23 10:52 UA Bilirubin 0 mg/dL Last Edit by Maday Hanks on 12/10/23 10:52 UA Glucose 0 mg/dL Last Edit by Maday Hanks on 12/10/23 10:52 Results Reviewed Results Reviewed: Laboratory Last Values Urine pH (Auto) 6.0 12/10/23 10:42 Specific [place] (Auto) 1.015 12/10/23 10:42 Urine Protein (Auto) 15 mg/dL 12/10/23 10:42 Glucose (UA)(Auto) 0 mg/dL 12/10/23 10:42 Urine Blood (Auto) 200 Al/uL 12/10/23 10:42 Urine Bilirubin (Auto) 0 mg/dL 12/10/23 10:42 Urine Urobilinogen (Auto) 0.2 mg/dL 12/10/23 10:42 Leukocyte Esterase (Auto) 0 Luis Alberto/uL 12/10/23 10:42 Date of Service: 08/18/23 EXAMINATION: US RETROPERITONEAL LIMITED (RENAL ONLY) CLINICAL INFORMATION: Hydronephrosis with renal and ureteral calculus obstruction. Status post removal of stent. COMPARISON: CT abdomen and pelvis 07/22/2023 and 05/27/2023. TECHNIQUE: Real-time imaging of the kidneys. FINDINGS: RIGHT KIDNEY: 10.1 x 4.0 x 4.0 cm (SAG x AP x TRV). The kidney is normal in size, contour, and echogenicity. Renal cortical thickness is normal. No focal parenchymal lesions. Moderate right hydronephrosis, increased from prior CT. The previously seen stent is no longer visible with reported history of stent removal. 2 mm possible calculus in the mid kidney is not visible on prior CT and likely ultrasound artifact. LEFT KIDNEY: 10.8 x 4.2 x 4.1 cm (SAG x AP x TRV). The kidney is normal in size, contour, and echogenicity. Renal cortical thickness is normal. No calculi or focal parenchymal lesions. No hydronephrosis. BLADDER: Bilateral ureteral jets are demonstrated. IMPRESSION: Recurrent moderate right hydronephrosis. Assessment & Plan Assessment & Plan (1) Hydronephrosis: Code(s): N13.30 - Unspecified hydronephrosis Category: Medical Qualifiers: Hydronephrosis type: with renal calculous obstruction Qualified Code(s): N13.2 - Hydronephrosis with renal and ureteral calculous obstruction (2) Nephrolithiasis: Code(s): N20.0 - Calculus of kidney Category: Medical Plan In office urinalysis results reviewed with the patient today; as noted above. Recent 24 hour urine collection results reviewed with the patient today; as noted above. Recent renal ultrasound results reviewed with the patient today; as noted above. We discussed at length importance of increase in hydration in relation to nephrolithiasis as well as 24 hour urine collection. Start potassium citrate as discussed and prescribed. Discussed obtaining nuclear renal scan for further assessment evaluation of hydronephrosis noted on recent imaging. Discussed at length potential causes of nephrolithiasis. She currently denies any bothersome urinary issues. She reports be happy with current voiding parameters. Will obtain repeat 24 hour urine collection with initiation of potassium citrate. Continue adding 1 oz of lemon juice to water daily. Follow-up in 3 months with labs, imaging, and 24 hour urine collection; or sooner with any issues, concerns, and or questions. Orders: Orders AMB Urinalysis Automated 12/10/23 Z13.9 - Encounter for screening, unspecified Creatinine 12/10/23 R39.15 - Urgency of urination Blood Urea Nitrogen 12/10/23 R39.15 - Urgency of urination NM renal flow w pharm int 12/10/23 N13.2 - Hydronephrosis with renal and ureteral calculous obstruction, N20.0 - Calculus of kidney Medications: New potassium citrate ER 20 mEq (2 x 10 mEq (1,080 mg)) PO BID 360 tabs 1RF 90 days N20.0 - Calculus of kidney Patient Instructions: The patient had an opportunity to ask questions regarding the treatment plan. All questions were answered. Physical exam, labs, and imaging were discussed and reviewed in detail. As well as risks, benefits, and discussion of treatment choices. No major barriers to understanding were identified. The patient expressed understanding and agreement with the above treatment plan. The patient was made aware they should contact our office by phone for worsening of their current condition, the appearance of new symptoms, or with any questions or concerns. Compliance is encouraged with any medications and follow up testing that is ordered. It is a privilege to be allowed the opportunity to participate in? your urological care.? Again, if you have any questions or concerns If you have any questions or concerns please do not hesitate to contact me. The office is [phone]. This note is constructed using voice recognition software. While every effort has been made to ensure accuracy pick up worker errors may have been included. Yours sincerely, MIKE Cochran Coding Level of Care Code Est Pt Level 4 (14349) Diagnoses Hydronephrosis N13.2 Hydronephrosis type: with renal calculous obstruction Nephrolithiasis N20.0 Time Spent (min) 35
== END 2023-12-10 11:08 | disposition home or self-care (01) ==
PROVIDERS: Visit Provider Nurse Practitioner Family
DX: N13.2 Hydronephrosis with renal and ureteral calculous obstruction (principal); N20.0 Calculus of kidney
CPT/HCPCS: 99214

== ENCOUNTER → 2023-12-10 10:35 | Outpatient (BNVA) | payer MEDICAID, SELFPAY | PROVIDERS: Visit Provider Nurse Practitioner Family | DX: N13.2 Hydronephrosis with renal and ureteral calculous obstruction (principal); R39.15 Urgency of urination | CPT/HCPCS: 81003; 99212 ==

== ENCOUNTER → 2024-01-07 12:52 | Outpatient (REF) | payer MEDICAID, SELFPAY ==
--- NOTE | ~2024-01-07 | NM_ITS ---
EXAMINATION: RENAL DYNAMIC IMAGING STUDY WITH LASIX CLINICAL INFORMATION: Hydronephrosis with renal and ureteral calculous obstruction. COMPARISON: No previous radionuclide renal scan is available for comparison. Renal ultrasound dated 08/18/[address] scan of the abdomen and pelvis dated 07/22/2023 are available for comparison. TECHNIQUE: Serial gamma scintillation camera images were obtained over the posterior trunk during the initial transit and subsequent distribution of a bolus intravenous injection of 10 mCi of Tc-99m DTPA. At 30 minutes later, 25 mg of Lasix was administered intravenously and an additional 20 minutes of images obtained. The study was terminated earlier than the usual 30 minutes post Lasix administration because of the patient's urgency to void. FINDINGS: Initial rapid sequence images show prompt and normal-appearing flow to the left kidney but there is mildly diminished flow to the right kidney which also appears smaller in size. Subsequent sequential static images obtained up to 30 minutes show good concentration in the left kidney, but moderately diminished concentration in the right kidney which also appears smaller in size. There is evidence of excretory function by 3 minutes postinjection on the left but this is not visualized well on the right until approximately 10 minutes post injection. At 30 minutes post injection there is good visualization of activity in the urinary bladder. There is only a small amount of retained activity in the left renal pelvis which appears normal in size, but there is moderate retention and mild dilatation of the right renal collecting system. Following Lasix administration, there is prompt washout of the minimal retained activity in the left renal pelvis, but washout on the right is much slower, although significant washout from the right renal collecting system does occur. The T-1/2 washout times following Lasix administration are: Left 12 minutes and right 27 minutes. The relative function of the two kidneys based on the 2-3 minute images are: Left 65% and right 35%. NM/NM renal flow w pharm int IMPRESSION: LEFT KIDNEY: Normal perfusion and function. No hydronephrosis or outflow obstruction. RIGHT KIDNEY: Mildly diminished perfusion and function. This kidney is significantly smaller than the left. Mild hydronephrosis and moderately severe partial outflow obstruction, probably at the ureteropelvic junction, is present. Electronically signed by: Elder Chaves MD 02/10/2024 03:33 PM [facility]
== END ==
LOC: HO.NUCMED 12:52
PROVIDERS: PCP Internal Medicine; Visit Provider Nurse Practitioner Family
DX: N13.2 Hydronephrosis with renal and ureteral calculous obstruction (principal)
CPT/HCPCS: 78708; A9539; J1940

== ENCOUNTER 2024-02-03 10:59 | Outpatient (RCR) | payer OTHER, MEDICAID, SELFPAY | END 2024-04-06 14:29 | disposition home or self-care (01) | LOC: HO.PT 10:59 | PROVIDERS: PCP Internal Medicine; Visit Provider Internal Medicine | DX: M25.511 Pain in right shoulder (principal) | CPT/HCPCS: 97110; 97140; 97161; 97535 ==